=== PATIENT | female | born 1985 | race Caucasian/White ===

== ENCOUNTER 2018-02-05 07:53 | Emergency (ER) | payer MEDICAID ==
[~2018-02-05] VITALS: Ht 162.6 cm; Wt 55.0 kg
[2018-02-05] MEDS ORDERED: LORAZEPAM 1MG TABLET PO ONE (10:15)
[2018-02-05 10:19] VITALS: BP 140/85
== END 2018-02-05 10:47 | disposition home or self-care (01) ==
LOC: ER 07:53
DX: F41.9 Anxiety disorder, unspecified (principal); G40.909 Epilepsy, unspecified, not intractable, without status epilepticus; F12.90 Cannabis use, unspecified, uncomplicated
CPT/HCPCS: 99283; 99284

== ENCOUNTER 2018-05-20 16:59 | Emergency (ER) | payer MEDICAID ==
[~2018-05-20] VITALS: Ht 162.6 cm; Wt 60.0 kg
[2018-05-20] MEDS ORDERED: SODIUM CHLORIDE 0.9% 1,000 ML IV ONE (17:18)
[2018-05-20 17:52] LABS: BASOPHILS % 0.2 % (0.0-2.0); HEMATOCRIT. 39.6 % (36.0-48.0); HEMOGLOBIN. 13.2 g/dL (12.0-16.0); LYMPHOCYTES % 34.6 % (20.0-50.0); MEAN CORPUSCULAR HEMOGLOBIN 31.9 pg (28.0-32.0); MEAN CORPUSCULAR VOLUME 95.9 fL (81.0-99.0); MEAN PLATELET VOLUME 8.5 fl (7.4-10.4); MONOCYTES % 8.8 % (2.0-8.0); NEUTROPHILS % 55.4 % (40.0-76.0); PLATELET 166 x1000/uL (130-400); RED BLOOD CELL COUNT 4.13 mill/uL (4.2-5.4); RED CELL DISTRIBUTION WIDTH 14.2 % (11.6-14.6)
[2018-05-20 17:57] LABS: HCG SCREEN NEGATIVE
[2018-05-20 18:02] LABS: CHLORIDE 116 mEq/L (98-107)
[2018-05-20 18:09] LABS: CLARITY URINE TURBID (CLEAR); COLOR URINE YELLOW (YELLOW); KETONES URINE NEGATIVE (NEGATIVE); LEUKOCYTE ESTERASE URINE TRACE (NEGATIVE); NITRITE URINE NEGATIVE (NEGATIVE); OCCULT BLOOD URINE NEGATIVE (NEGATIVE); PROTEIN URINE NEGATIVE (NEGATIVE); SPECIFIC GRAVITY URINE 1.019 (1.005-1.030); UROBILINOGEN URINE 0.2 E.U./dL (0.2-1.0)
[2018-05-20 18:12] LABS: CARBAMAZEPINE < 0.5 ug/mL (4-12); ETHANOL BLOOD < 10 mg/dL; PHENOBARBITAL < 2.1 ug/mL (15.0-40.0); VALPROIC ACID < 3.0 ug/mL (50-100)
[2018-05-20 18:21] LABS: CANNABINOID URINE SCREEN NEGATIVE (NEGATIVE); METHADONE URINE SCREEN NEGATIVE (NEGATIVE); OPIATES URINE SCREEN NEGATIVE (NEGATIVE); PHENCYCLIDINE URINE SCREEN NEGATIVE (NEGATIVE)
[2018-05-20 18:22] LABS: *AMPHETAMINES SCREEN URINE NEGATIVE (NEGATIVE); *BARBITURATES SCREEN URINE NEGATIVE (NEGATIVE); *BENZODIAZEPINES SCREEN URINE NEGATIVE (NEGATIVE); *COCAINE SCREEN URINE NEGATIVE (NEGATIVE)
[2018-05-20] MEDS ORDERED: CARBAMAZEPINE 100MG TABLET CHEW PO ONE (19:15)
[2018-05-20 20:54] VITALS: BP 95/63
== END 2018-05-20 21:00 | disposition home or self-care (01) ==
LOC: ER 16:59
DX: E86.0 Dehydration (principal); R56.9 Unspecified convulsions; N39.0 Urinary tract infection, site not specified; F12.10 Cannabis abuse, uncomplicated
CPT/HCPCS: 36415; 70450; 80053; 80156; 80165; 80184; 80185; 80305; 81003; 81025; 84703; 85025; 96360; 96361; 99285; G0482; J7030

== ENCOUNTER 2018-07-22 19:24 | Emergency (ER) | payer MEDICAID ==
[~2018-07-22] VITALS: Ht 162.6 cm; Wt 68.1 kg
[2018-07-23] MEDS ORDERED: AZITHROMYCIN 500 MG TABLET PO ONE (01:00)
[2018-07-23] MEDS ORDERED: CEFTRIAXONE SODIUM 250 MG/VIAL IM ONE (01:00)
[2018-07-23 02:28] LABS: CLARITY URINE CLEAR (CLEAR); COLOR URINE YELLOW (YELLOW); KETONES URINE NEGATIVE (NEGATIVE); LEUKOCYTE ESTERASE URINE TRACE (NEGATIVE); NITRITE URINE POSITIVE (NEGATIVE); OCCULT BLOOD URINE NEGATIVE (NEGATIVE); PROTEIN URINE NEGATIVE (NEGATIVE); SPECIFIC GRAVITY URINE 1.018 (1.005-1.030); UROBILINOGEN URINE 0.2 E.U./dL (0.2-1.0)
[2018-07-23] MEDS ORDERED: CEPHALEXIN 250MG CAPSULE PO SCH (03:15)
[2018-07-23 05:52] VITALS: BP 119/55
[2018-07-27 04:13] LABS: CHLAMYDIA TRACHOMATIS NAA Negative (Negative); NEISSERIA GONORRHOEAE NAA Negative (Negative)
== END 2018-07-23 05:53 | disposition home or self-care (01) ==
LOC: ER 20:53
DX: G40.909 Epilepsy, unspecified, not intractable, without status epilepticus (principal); Z11.3 Encounter for screening for infections with a predominantly sexual mode of transmission; T76.21XA Adult sexual abuse, suspected, initial encounter; Z98.890 Other specified postprocedural states
CPT/HCPCS: 81003; 81025; 82962; 86703; 87491; 87591; 96372; 99283; J0696

== ENCOUNTER 2018-09-03 19:19 | Emergency (ER) | payer MEDICAID ==
[~2018-09-03] VITALS: Ht 167.6 cm; Wt 68.0 kg
[2018-09-03 19:23] VITALS: BP 130/84
== END 2018-09-03 23:00 | disposition left against medical advice (07) ==
LOC: ER 19:19
DX: Z53.21 Procedure and treatment not carried out due to patient leaving prior to being seen by health care provider (principal); F41.9 Anxiety disorder, unspecified; F32.9 Major depressive disorder, single episode, unspecified; Z98.890 Other specified postprocedural states

== ENCOUNTER 2019-01-15 22:22 | Emergency (ER) | payer MEDICAID ==
[~2019-01-15] VITALS: Ht 162.6 cm; Wt 57.0 kg
[2019-01-15 23:30] LABS: CLARITY URINE CLOUDY (CLEAR); COLOR URINE DARK YELLOW (YELLOW); KETONES URINE TRACE (NEGATIVE); LEUKOCYTE ESTERASE URINE 2+ (NEGATIVE); NITRITE URINE NEGATIVE (NEGATIVE); OCCULT BLOOD URINE NEGATIVE (NEGATIVE); PH URINE 5.5 (4.5-8.0); PROTEIN URINE NEGATIVE (NEGATIVE); SPECIFIC GRAVITY URINE 1.028 (1.005-1.030)
[2019-01-16] MEDS ORDERED: CEPHALEXIN 250MG CAPSULE PO ONE (01:45)
[2019-01-16 01:59] VITALS: BP 95/65
== END 2019-01-16 02:25 | disposition home or self-care (01) ==
LOC: ER 23:17
DX: N39.0 Urinary tract infection, site not specified (principal); R05 Cough
CPT/HCPCS: 71045; 81025; 99284

== ENCOUNTER 2019-02-12 12:34 | Emergency (ER) | payer MEDICAID ==
[~2019-02-12] VITALS: Ht 160 cm; Wt 60.0 kg
[2019-02-12] MEDS ORDERED: FLUT15.88 NS (12:53)
[2019-02-12] MEDS ORDERED: BIOT25008 PO (12:53)
[2019-02-12] MEDS ORDERED: OMEP20CA5 PO (12:53)
[2019-02-12] MEDS ORDERED: MONT10TA24 PO (12:53)
[2019-02-12] MEDS ORDERED: OXCA600T20 PO (12:53)
[2019-02-12] MEDS ORDERED: LUBI8CAP PO (12:53)
[2019-02-12] MEDS ORDERED: LEVO88TA7 PO (12:53)
[2019-02-12] MEDS ORDERED: DEXL60CA3 PO (12:53)
[2019-02-12] MEDS ORDERED: TOPI200T15 PO (12:53)
[2019-02-12] MEDS ORDERED: CLON2TAB21 PO (12:53)
[2019-02-12] MEDS ORDERED: DIATR MEGLU/DIATRIZOATE SOLN 30ML ONE (15:42)
[2019-02-12 16:36] LABS: BASOPHILS % 0.4 % (0.0-2.0); EOSINOPHILS % 1.9 % (0.0-5.0); HEMATOCRIT. 39.6 % (36.0-48.0); HEMOGLOBIN. 13.6 g/dL (12.0-16.0); LYMPHOCYTES % 41.8 % (20.0-50.0); MEAN CORPUSCULAR HEMOGLOBIN 33.4 pg (28.0-32.0); MEAN CORPUSCULAR VOLUME 97.5 fL (81.0-99.0); MEAN PLATELET VOLUME 8.4 fl (7.4-10.4); NEUTROPHILS % 46.9 % (40.0-76.0); PLATELET 161 x1000/uL (130-400); RED BLOOD CELL COUNT 4.06 mill/uL (4.2-5.4); RED CELL DISTRIBUTION WIDTH 12.8 % (11.6-14.6)
[2019-02-12 16:40] LABS: CHLORIDE 108 mEq/L (98-107)
[2019-02-12 16:41] LABS: INR 1.1; PROTHROMBIN TIME 11.6 sec (9.6-11.0)
[2019-02-12 16:51] LABS: B-HCG QUANTITATIVE < 1 mIU/mL (<3)
[2019-02-12 19:03] LABS: CLARITY URINE CLEAR (CLEAR); COLOR URINE DARK YELLOW (YELLOW); KETONES URINE 2+ (NEGATIVE); LEUKOCYTE ESTERASE URINE 2+ (NEGATIVE); NITRITE URINE NEGATIVE (NEGATIVE); OCCULT BLOOD URINE NEGATIVE (NEGATIVE); PH URINE 6.5 (4.5-8.0); PROTEIN URINE NEGATIVE (NEGATIVE); SPECIFIC GRAVITY URINE 1.021 (1.005-1.030)
[2019-02-12 19:15] LABS: *AMPHETAMINES SCREEN URINE NEGATIVE (NEGATIVE)
[2019-02-12 19:16] LABS: *BARBITURATES SCREEN URINE NEGATIVE (NEGATIVE); *COCAINE SCREEN URINE NEGATIVE (NEGATIVE); CANNABINOID URINE SCREEN NEGATIVE (NEGATIVE); METHADONE URINE SCREEN NEGATIVE (NEGATIVE); OPIATES URINE SCREEN NEGATIVE (NEGATIVE); PHENCYCLIDINE URINE SCREEN NEGATIVE (NEGATIVE)
[2019-02-12 19:18] LABS: *BENZODIAZEPINES SCREEN URINE PRESUMTIVE POSITIVE (NEGATIVE)
[2019-02-12] MEDS ORDERED: NITROFURANTOIN 100MG M/M CAPSULE PO ONE (20:00)
[2019-02-12 20:59] VITALS: BP 108/70
== END 2019-02-12 21:01 | disposition home or self-care (01) ==
LOC: ER 12:34
DX: N39.0 Urinary tract infection, site not specified (principal); E86.0 Dehydration; R30.0 Dysuria; D72.819 Decreased white blood cell count, unspecified; E87.8 Other disorders of electrolyte and fluid balance, not elsewhere classified; R00.1 Bradycardia, unspecified; N89.8 Other specified noninflammatory disorders of vagina; F41.9 Anxiety disorder, unspecified; G40.909 Epilepsy, unspecified, not intractable, without status epilepticus; N17.0 Acute kidney failure with tubular necrosis; E03.9 Hypothyroidism, unspecified; R82.71 Bacteriuria; R82.4 Acetonuria; F32.9 Major depressive disorder, single episode, unspecified; R78.89 Finding of other specified substances, not normally found in blood; K21.9 Gastro-esophageal reflux disease without esophagitis; I95.9 Hypotension, unspecified; D64.9 Anemia, unspecified; F12.10 Cannabis abuse, uncomplicated; F19.10 Other psychoactive substance abuse, uncomplicated; Z98.51 Tubal ligation status; Z98.890 Other specified postprocedural states; Z59.0 Homelessness; Z79.899 Other long term (current) drug therapy; Z88.8 Allergy status to other drugs, medicaments and biological substances; Z91.040 Latex allergy status
CPT/HCPCS: 36415; 74176; 80053; 80305; 81003; 81025; 83690; 83735; 84702; 85025; 85610; 87040; 87077; 87086; 87186; 93005; 99284; Q9963

== ENCOUNTER 2019-04-30 17:24 | Emergency (ER) | payer MEDICAID ==
[~2019-04-30] VITALS: Ht 162.6 cm; Wt 60.0 kg
[~2019-04-30 17:24] MED LIST: BIOT25008 PO; CLON2TAB21 PO; DEXL60CA3 PO; FLUT15.88 NS; LEVO88TA7 PO; LUBI8CAP PO; MONT10TA24 PO; OMEP20CA5 PO; OXCA600T20 PO; TOPI200T15 PO
[2019-04-30] MEDS ORDERED: SODIUM CHLORIDE 0.9% 1,000 ML IV ONE (20:11)
[2019-04-30] MEDS ORDERED: LEVETIRACETAM 1000MG/100ML 100 ML IV ONE (20:15)
[2019-04-30] MEDS ORDERED: CLONAZEPAM 1MG TABLET PO ONE (20:45)
[2019-04-30] MEDS ORDERED: OXYCODONE HCL/ACETAMINOPHEN 5/325MG TABLET PO ONE (20:45)
[2019-04-30 23:14] LABS: BASOPHILS % 0.2 % (0.0-2.0); EOSINOPHILS % 1.9 % (0.0-5.0); HEMATOCRIT. 35.4 % (36.0-48.0); HEMOGLOBIN. 12.1 g/dL (12.0-16.0); LYMPHOCYTES % 40.9 % (20.0-50.0); MEAN CORPUSCULAR HEMOGLOBIN 33.2 pg (28.0-32.0); MEAN CORPUSCULAR VOLUME 96.9 fL (81.0-99.0); MEAN PLATELET VOLUME 7.4 fl (7.4-10.4); MONOCYTES % 9.3 % (2.0-8.0); NEUTROPHILS % 47.7 % (40.0-76.0); PLATELET 143 x1000/uL (130-400); RED BLOOD CELL COUNT 3.66 mill/uL (4.2-5.4); RED CELL DISTRIBUTION WIDTH 12.7 % (11.6-14.6)
[2019-04-30 23:20] LABS: CHLORIDE 118 mEq/L (98-107)
[2019-04-30 23:21] LABS: CLARITY URINE CLEAR (CLEAR); COLOR URINE YELLOW (YELLOW); KETONES URINE NEGATIVE (NEGATIVE); LEUKOCYTE ESTERASE URINE NEGATIVE (NEGATIVE); NITRITE URINE NEGATIVE (NEGATIVE); OCCULT BLOOD URINE NEGATIVE (NEGATIVE); PROTEIN URINE NEGATIVE (NEGATIVE); SPECIFIC GRAVITY URINE 1.025 (1.005-1.030); UROBILINOGEN URINE 0.2 E.U./dL (0.2-1.0)
[2019-04-30 23:24] LABS: ETHANOL BLOOD < 10 mg/dL
[2019-04-30 23:37] LABS: *AMPHETAMINES SCREEN URINE NEGATIVE (NEGATIVE); *BARBITURATES SCREEN URINE NEGATIVE (NEGATIVE); *COCAINE SCREEN URINE NEGATIVE (NEGATIVE)
[2019-04-30 23:38] LABS: CANNABINOID URINE SCREEN NEGATIVE (NEGATIVE); METHADONE URINE SCREEN NEGATIVE (NEGATIVE); OPIATES URINE SCREEN NEGATIVE (NEGATIVE); PHENCYCLIDINE URINE SCREEN NEGATIVE (NEGATIVE)
[2019-04-30 23:44] LABS: *BENZODIAZEPINES SCREEN URINE PRESUMTIVE POSITIVE (NEGATIVE)
[2019-05-01 15:01] VITALS: BP 121/70
== END 2019-05-01 15:01 | disposition home or self-care (01) ==
LOC: ER 17:24
DX: G40.909 Epilepsy, unspecified, not intractable, without status epilepticus (principal); F12.10 Cannabis abuse, uncomplicated; F13.10 Sedative, hypnotic or anxiolytic abuse, uncomplicated; F41.9 Anxiety disorder, unspecified; K21.9 Gastro-esophageal reflux disease without esophagitis; I95.9 Hypotension, unspecified; E03.9 Hypothyroidism, unspecified; D64.9 Anemia, unspecified; F43.10 Post-traumatic stress disorder, unspecified; Z59.0 Homelessness; Z87.440 Personal history of urinary (tract) infections; Z87.09 Personal history of other diseases of the respiratory system; Z98.51 Tubal ligation status; Z79.899 Other long term (current) drug therapy
CPT/HCPCS: 36415; 80053; 80305; 80320; 81003; 81025; 82962; 85025; 96365; 99283; J1953; J7030; Z7610; G0480

== ENCOUNTER 2019-06-22 17:21 | Emergency (ER) | payer MEDICAID ==
[~2019-06-22] VITALS: Ht 167.6 cm; Wt 68.0 kg
[2019-06-22] MEDS ORDERED: LORAZEPAM 1MG TABLET PO ONE (18:45)
[2019-06-22 19:02] LABS: BASOPHILS % 0.1 % (0.0-2.0); HEMATOCRIT. 44.4 % (36.0-48.0); HEMOGLOBIN. 14.8 g/dL (12.0-16.0); LYMPHOCYTES % 35.5 % (20.0-50.0); MEAN CORPUSCULAR HEMOGLOBIN 31.8 pg (28.0-32.0); MEAN CORPUSCULAR VOLUME 95.7 fL (81.0-99.0); MEAN PLATELET VOLUME 7.7 fl (7.4-10.4); MONOCYTES % 4.5 % (2.0-8.0); NEUTROPHILS % 58.9 % (40.0-76.0); PLATELET 207 x1000/uL (130-400); RED BLOOD CELL COUNT 4.64 mill/uL (4.2-5.4); RED CELL DISTRIBUTION WIDTH 13.2 % (11.6-14.6)
[2019-06-22 19:09] LABS: CHLORIDE 113 mEq/L (98-107)
[2019-06-22 19:20] LABS: CARBAMAZEPINE < 0.5 ug/mL (4-12)
[2019-06-22 20:22] LABS: CLARITY URINE CLOUDY (CLEAR); COLOR URINE YELLOW (YELLOW); KETONES URINE NEGATIVE (NEGATIVE); LEUKOCYTE ESTERASE URINE NEGATIVE (NEGATIVE); NITRITE URINE NEGATIVE (NEGATIVE); OCCULT BLOOD URINE NEGATIVE (NEGATIVE); PH URINE 6.5 (4.5-8.0); PROTEIN URINE NEGATIVE (NEGATIVE); SPECIFIC GRAVITY URINE 1.023 (1.005-1.030); UROBILINOGEN URINE 0.2 E.U./dL (0.2-1.0)
[2019-06-22] MEDS ORDERED: CARBAMAZEPINE 200MG TABLET PO ONE (21:00)
[2019-06-22] MEDS ORDERED: ACETAMINOPHEN WITH CODEINE 300/30MG TABLET PO ONE (21:00)
[2019-06-22 21:42] VITALS: BP 102/70
== END 2019-06-22 21:45 | disposition home or self-care (01) ==
LOC: ER 17:21
DX: G40.909 Epilepsy, unspecified, not intractable, without status epilepticus (principal); F41.9 Anxiety disorder, unspecified; K21.9 Gastro-esophageal reflux disease without esophagitis; E03.9 Hypothyroidism, unspecified; Z98.51 Tubal ligation status; Z91.018 Allergy to other foods
CPT/HCPCS: 36415; 80156; 81003; 81025; 93005; 99284

== ENCOUNTER 2019-07-28 00:05 | Emergency (ER) | payer MEDICAID ==
[~2019-07-28] VITALS: Ht 162.6 cm; Wt 60.0 kg
[2019-07-28 02:31] LABS: CLARITY URINE TURBID (CLEAR); COLOR URINE YELLOW (YELLOW); KETONES URINE NEGATIVE (NEGATIVE); LEUKOCYTE ESTERASE URINE 1+ (NEGATIVE); NITRITE URINE NEGATIVE (NEGATIVE); OCCULT BLOOD URINE NEGATIVE (NEGATIVE); PROTEIN URINE NEGATIVE (NEGATIVE); SPECIFIC GRAVITY URINE 1.017 (1.005-1.030); UROBILINOGEN URINE 0.2 E.U./dL (0.2-1.0)
[2019-07-28] MEDS ORDERED: ACETAMINOPHEN 325MG TABLET PO ONE (03:45)
[2019-07-28 04:50] VITALS: BP 102/55
== END 2019-07-28 04:57 | disposition home or self-care (01) ==
LOC: ER 00:05
DX: N30.00 Acute cystitis without hematuria (principal); Z86.73 Personal history of transient ischemic attack (TIA), and cerebral infarction without residual deficits; F12.10 Cannabis abuse, uncomplicated; F13.10 Sedative, hypnotic or anxiolytic abuse, uncomplicated; K21.9 Gastro-esophageal reflux disease without esophagitis; Z98.890 Other specified postprocedural states; Z98.51 Tubal ligation status; Z79.899 Other long term (current) drug therapy
CPT/HCPCS: 76830; 76856; 81003; 81025; 99284

== ENCOUNTER 2019-08-08 10:07 | Inpatient (IN) | payer MEDICAID ==
[~2019-08-08] VITALS: Ht 162.6 cm; Wt 61.7 kg
[~2019-08-08 10:07] MED LIST changes: +FLUT15.844 NS; -FLUT15.88 NS; -MONT10TA24 PO; +MONT10TA26 PO; +OMEP20CA14 PO; -OMEP20CA5 PO
[2019-08-08] MEDS ORDERED: SODIUM CHLORIDE 0.9% 1,000 ML IV ONE ×2 (13:16→16:15)
[2019-08-08] MEDS ORDERED: MECLIZINE 25MG TABLET PO ONE (13:30)
[2019-08-08 13:52] LABS: CLARITY URINE CLOUDY (CLEAR); COLOR URINE YELLOW (YELLOW); KETONES URINE NEGATIVE (NEGATIVE); LEUKOCYTE ESTERASE URINE NEGATIVE (NEGATIVE); NITRITE URINE NEGATIVE (NEGATIVE); OCCULT BLOOD URINE NEGATIVE (NEGATIVE); PH URINE 8.5 (4.5-8.0); PROTEIN URINE NEGATIVE (NEGATIVE); SPECIFIC GRAVITY URINE 1.019 (1.005-1.030); UROBILINOGEN URINE 0.2 E.U./dL (0.2-1.0)
[2019-08-08 13:56] LABS: BASOPHILS % 0.3 % (0.0-2.0); EOSINOPHILS % 1.8 % (0.0-5.0); HEMATOCRIT. 38.4 % (36.0-48.0); HEMOGLOBIN. 13.1 g/dL (12.0-16.0); LYMPHOCYTES % 39.7 % (20.0-50.0); MEAN CORPUSCULAR HEMOGLOBIN 32.9 pg (28.0-32.0); MEAN CORPUSCULAR VOLUME 96.5 fL (81.0-99.0); MEAN PLATELET VOLUME 7.4 fl (7.4-10.4); MONOCYTES % 6.9 % (2.0-8.0); NEUTROPHILS % 51.3 % (40.0-76.0); PLATELET 168 x1000/uL (130-400); RED BLOOD CELL COUNT 3.98 mill/uL (4.2-5.4); RED CELL DISTRIBUTION WIDTH 13.2 % (11.6-14.6)
[2019-08-08 14:02] LABS: CHLORIDE 111 mEq/L (98-107)
[2019-08-08 14:06] LABS: ETHANOL BLOOD < 10 mg/dL
[2019-08-08 14:37] LABS: *COCAINE SCREEN URINE NEGATIVE (NEGATIVE); METHADONE URINE SCREEN NEGATIVE (NEGATIVE); OPIATES URINE SCREEN NEGATIVE (NEGATIVE)
[2019-08-08 14:38] LABS: *AMPHETAMINES SCREEN URINE NEGATIVE (NEGATIVE); *BARBITURATES SCREEN URINE NEGATIVE (NEGATIVE); *BENZODIAZEPINES SCREEN URINE NEGATIVE (NEGATIVE); CANNABINOID URINE SCREEN NEGATIVE (NEGATIVE); PHENCYCLIDINE URINE SCREEN NEGATIVE (NEGATIVE)
[2019-08-08 20:40] VITALS: BP 97/58
[2019-08-08] MEDS ORDERED: CLAR-44 PO (22:01)
[2019-08-08] MEDS ORDERED: AMOX-494 MT (22:01)
[2019-08-08] MEDS ORDERED: FAMO40TA7 PO (22:01)
[2019-08-08] MEDS ORDERED: FOLI400T4 PO (22:01)
[2019-08-08] MEDS ORDERED: OXCA600T20 MT (22:01)
[2019-08-08] MEDS ORDERED: OMEP40CA12 PO (22:01)
[2019-08-08] MEDS ORDERED: TOPI200T15 MT (22:01)
[2019-08-08] MEDS ORDERED: MULT-1146 MT (22:01)
[2019-08-08] MEDS ORDERED: FOLI0.4T2 MT (22:01)
[2019-08-08] MEDS ORDERED: MECLIZINE 25MG TABLET PO PRN (23:15)
[2019-08-09] VITALS: BP 97/56
[2019-08-09 04:00] VITALS: BP 89/51
[2019-08-09] MEDS: LEVOTHYROXINE SODIUM 88MCG TABLET PO SCH (06:02)
[2019-08-09] MEDS: CLONAZEPAM 1MG TABLET PO SCH ×2 (06:50→13:10)
[2019-08-09 07:05] LABS: BASOPHILS % 0.3 % (0.0-2.0); EOSINOPHILS % 1.5 % (0.0-5.0); HEMATOCRIT. 35.6 % (36.0-48.0); HEMOGLOBIN. 12.3 g/dL (12.0-16.0); LYMPHOCYTES % 38.2 % (20.0-50.0); MEAN CORPUSCULAR HEMOGLOBIN 33.2 pg (28.0-32.0); MONOCYTES % 7.3 % (2.0-8.0); NEUTROPHILS % 52.7 % (40.0-76.0); PLATELET 161 x1000/uL (130-400); RED BLOOD CELL COUNT 3.71 mill/uL (4.2-5.4); RED CELL DISTRIBUTION WIDTH 13.3 % (11.6-14.6)
[2019-08-09 08:00] VITALS: BP 93/52
[2019-08-09 08:28] LABS: CHLORIDE 119 mEq/L (98-107)
[2019-08-09] MEDS ORDERED: TOPIRAMATE 100MG TABLET PO SCH (09:00)
[2019-08-09] MEDS ORDERED: OXCARBAZEPINE 300MG TABLET PO SCH (09:00)
[2019-08-09] MEDS: ASPIRIN 325MG EC TABLET PO SCH (09:32)
[2019-08-09 12:00] VITALS: BP 91/55
[2019-08-09] MEDS: MIDODRINE HCL 5MG TABLET PO SCH ×2 (14:46→17:41)
[2019-08-09 16:00] VITALS: BP 114/57
[2019-08-09] MEDS ORDERED: MONTELUKAST SODIUM 10MG TABLET PO SCH (17:00)
[2019-08-09] MEDS: TOPIRAMATE 100MG TABLET PO SCH (17:40)
[2019-08-09] MEDS: OXCARBAZEPINE 300MG TABLET PO SCH (17:41)
[2019-08-09 20:00] VITALS: BP 115/55
[2019-08-09] MEDS ORDERED: FAMOTIDINE 20MG TABLET PO SCH (21:00)
[2019-08-10] VITALS: BP 84/48
[2019-08-10] MEDS: CLONAZEPAM 1MG TABLET PO SCH ×2 (00:06→06:19)
[2019-08-10 04:00] VITALS: BP 92/44
[2019-08-10] MEDS: OXCARBAZEPINE 300MG TABLET PO SCH (06:19)
[2019-08-10] MEDS: LEVOTHYROXINE SODIUM 88MCG TABLET PO SCH (06:19)
[2019-08-10] MEDS: TOPIRAMATE 100MG TABLET PO SCH (06:19)
[2019-08-10] MEDS: ASPIRIN 325MG EC TABLET PO SCH (09:00)
[2019-08-10] MEDS: MIDODRINE HCL 5MG TABLET PO SCH (09:00)
== END 2019-08-10 09:15 | disposition left against medical advice (07) | DRG 48 ==
LOC: ER 10:07 → EDBEDREQ 18:18 → ENRESERV 19:47 → 5WST 20:24
PROVIDERS: ADMIT Internal Medicine; ATTEND Internal Medicine
DX: G90.8 Other disorders of autonomic nervous system (principal); G40.209 Localization-related (focal) (partial) symptomatic epilepsy and epileptic syndromes with complex partial seizures, not intractable, without status epilepticus; F43.10 Post-traumatic stress disorder, unspecified; K21.9 Gastro-esophageal reflux disease without esophagitis; K58.9 Irritable bowel syndrome, unspecified; E03.9 Hypothyroidism, unspecified; F32.9 Major depressive disorder, single episode, unspecified; F41.9 Anxiety disorder, unspecified; Z53.29 Procedure and treatment not carried out because of patient's decision for other reasons; Z91.018 Allergy to other foods; Z91.040 Latex allergy status; Z98.891 History of uterine scar from previous surgery; Z88.8 Allergy status to other drugs, medicaments and biological substances; Z79.899 Other long term (current) drug therapy; Z81.8 Family history of other mental and behavioral disorders; Z91.410 Personal history of adult physical and sexual abuse; Z56.0 Unemployment, unspecified; Z80.0 Family history of malignant neoplasm of digestive organs
CPT/HCPCS: 36415; 71045; 80048; 80053; 80305; 80307; 80320; 80329; 81003; 82140; 84484; 85025; 93005; 96360; 99285; J7030; J8597; G0480

== ENCOUNTER 2019-08-12 01:58 | Emergency (ER) | payer MEDICAID ==
[~2019-08-12] VITALS: Ht 162.6 cm; Wt 60.0 kg
[~2019-08-12 01:58] MED LIST changes: +AMOX-494 MT; +CLAR500T PO; -DEXL60CA3 PO; +FAMO40TA7 PO; +FOLI0.4T2 MT; -LUBI8CAP PO; +MONT10TA24 PO; -MONT10TA26 PO; +MULT-1146 MT; +OMEP40CA12 PO
[2019-08-12] MEDS ORDERED: HYDROCODONE/ACETAMINOPHEN 5/325MG TABLET PO ONE (02:45)
[2019-08-12 11:31] VITALS: BP 102/53
== END 2019-08-12 12:03 | disposition home or self-care (01) ==
LOC: ER 02:42
DX: R51 Headache (principal); K21.9 Gastro-esophageal reflux disease without esophagitis; D64.9 Anemia, unspecified; R56.9 Unspecified convulsions; E03.9 Hypothyroidism, unspecified; F43.10 Post-traumatic stress disorder, unspecified; Z91.018 Allergy to other foods; Z91.040 Latex allergy status; Z91.048 Other nonmedicinal substance allergy status
CPT/HCPCS: 99283

== ENCOUNTER 2019-08-25 11:17 | Emergency (ER) | payer MEDICAID ==
[~2019-08-25] VITALS: Ht 162.6 cm; Wt 61.0 kg
[2019-08-25] MEDS ORDERED: LORAZEPAM 1MG TABLET PO ONE (15:30)
[2019-08-25 16:45] VITALS: BP 118/80
== END 2019-08-25 17:03 | disposition home or self-care (01) ==
LOC: ER 11:17
DX: F41.9 Anxiety disorder, unspecified (principal); R56.9 Unspecified convulsions; D64.9 Anemia, unspecified; K21.9 Gastro-esophageal reflux disease without esophagitis; Z98.890 Other specified postprocedural states; F12.10 Cannabis abuse, uncomplicated; E03.9 Hypothyroidism, unspecified; Z79.899 Other long term (current) drug therapy; Z91.040 Latex allergy status
CPT/HCPCS: 81025; 99283

== ENCOUNTER 2019-08-25 18:23 | Emergency (ER) | payer MEDICAID ==
[2019-08-25] MEDS ORDERED: SODIUM CHLORIDE 0.9% 1,000 ML IV ONE (22:32)
[2019-08-25] MEDS ORDERED: LORAZEPAM 2MG/ML CPJ IV ONE (22:45)
[2019-08-25 23:02] LABS: BASOPHILS % 0.1 % (0.0-2.0); EOSINOPHILS % 0.8 % (0.0-5.0); HEMATOCRIT. 38.6 % (36.0-48.0); LYMPHOCYTES % 34.8 % (20.0-50.0); MEAN CORPUSCULAR HEMOGLOBIN 32.4 pg (28.0-32.0); MEAN PLATELET VOLUME 7.6 fl (7.4-10.4); MONOCYTES % 8.3 % (2.0-8.0); PLATELET 205 x1000/uL (130-400); RED BLOOD CELL COUNT 4.03 mill/uL (4.2-5.4); RED CELL DISTRIBUTION WIDTH 13.2 % (11.6-14.6)
[2019-08-25 23:06] LABS: CHLORIDE 113 mEq/L (98-107)
[2019-08-25 23:10] LABS: ETHANOL BLOOD < 10 mg/dL
[2019-08-25 23:18] LABS: HCG SCREEN NEGATIVE
[2019-08-25 23:19] LABS: PHENOBARBITAL < 2.1 ug/mL (15.0-40.0)
[2019-08-25 23:20] LABS: CARBAMAZEPINE < 0.5 ug/mL (4-12); VALPROIC ACID < 3.0 ug/mL (50-100)
[2019-08-26 00:53] LABS: CLARITY URINE CLEAR (CLEAR); COLOR URINE YELLOW (YELLOW); KETONES URINE NEGATIVE (NEGATIVE); LEUKOCYTE ESTERASE URINE NEGATIVE (NEGATIVE); NITRITE URINE NEGATIVE (NEGATIVE); OCCULT BLOOD URINE NEGATIVE (NEGATIVE); PH URINE 6.5 (4.5-8.0); PROTEIN URINE NEGATIVE (NEGATIVE); SPECIFIC GRAVITY URINE 1.025 (1.005-1.030); UROBILINOGEN URINE 0.2 E.U./dL (0.2-1.0)
[2019-08-26 01:08] LABS: *AMPHETAMINES SCREEN URINE NEGATIVE (NEGATIVE); *BARBITURATES SCREEN URINE NEGATIVE (NEGATIVE); *BENZODIAZEPINES SCREEN URINE NEGATIVE (NEGATIVE); *COCAINE SCREEN URINE NEGATIVE (NEGATIVE); METHADONE URINE SCREEN NEGATIVE (NEGATIVE); OPIATES URINE SCREEN NEGATIVE (NEGATIVE)
[2019-08-26 01:09] LABS: CANNABINOID URINE SCREEN NEGATIVE (NEGATIVE); PHENCYCLIDINE URINE SCREEN NEGATIVE (NEGATIVE)
[2019-08-26] MEDS ORDERED: CARBAMAZEPINE 100MG TABLET CHEW PO ONE (01:30)
[2019-08-26 02:00] VITALS: BP 93/43
== END 2019-08-26 03:58 | disposition home or self-care (01) ==
LOC: ER 18:23
DX: G40.909 Epilepsy, unspecified, not intractable, without status epilepticus (principal); E86.0 Dehydration; K21.9 Gastro-esophageal reflux disease without esophagitis; E03.9 Hypothyroidism, unspecified; D64.9 Anemia, unspecified; Z91.018 Allergy to other foods; Z91.040 Latex allergy status; Z91.048 Other nonmedicinal substance allergy status
CPT/HCPCS: 36415; 70450; 80053; 80156; 80165; 80184; 80185; 80305; 80320; 81003; 82962; 83690; 84443; 84703; 85025; 93005; 96361; 96374; 99284; J2060; J7030; Z7610; G0480

== ENCOUNTER 2019-09-19 02:02 | Emergency (ER) | payer MEDICAID ==
[~2019-09-19] VITALS: Ht 162.6 cm; Wt 58.0 kg
[~2019-09-19 02:02] MED LIST changes: +CLAR-44 PO; -CLAR500T PO; -MONT10TA24 PO; +MONT10TA26 PO
[2019-09-19] MEDS ORDERED: KETOROLAC 30MG/ML VIAL IV STA (04:22)
[2019-09-19] MEDS ORDERED: SODIUM CHLORIDE 0.9% 1,000 ML IV ONE (04:22)
[2019-09-19] MEDS ORDERED: ONDANSETRON HCL 4MG/2ML INJ IV STA (04:22)
[2019-09-19] MEDS ORDERED: FAMOTIDINE 20MG/2ML VIAL IV ONE (04:30)
[2019-09-19 05:12] LABS: BASOPHILS % 0.1 % (0.0-2.0); CLARITY URINE CLEAR (CLEAR); COLOR URINE YELLOW (YELLOW); EOSINOPHILS % 2.2 % (0.0-5.0); HEMATOCRIT. 39.4 % (36.0-48.0); HEMOGLOBIN. 13.5 g/dL (12.0-16.0); KETONES URINE NEGATIVE (NEGATIVE); LEUKOCYTE ESTERASE URINE 2+ (NEGATIVE); LYMPHOCYTES % 37.9 % (20.0-50.0); MEAN CORPUSCULAR HEMOGLOBIN 33.3 pg (28.0-32.0); MEAN CORPUSCULAR VOLUME 96.8 fL (81.0-99.0); MEAN PLATELET VOLUME 7.8 fl (7.4-10.4); MONOCYTES % 8.9 % (2.0-8.0); NEUTROPHILS % 50.9 % (40.0-76.0); NITRITE URINE NEGATIVE (NEGATIVE); OCCULT BLOOD URINE NEGATIVE (NEGATIVE); PH URINE 7.5 (4.5-8.0); PLATELET 147 x1000/uL (130-400); PROTEIN URINE NEGATIVE (NEGATIVE); RED BLOOD CELL COUNT 4.07 mill/uL (4.2-5.4); RED CELL DISTRIBUTION WIDTH 13.2 % (11.6-14.6); SPECIFIC GRAVITY URINE 1.018 (1.005-1.030); UROBILINOGEN URINE 0.2 E.U./dL (0.2-1.0)
[2019-09-19 05:17] LABS: CHLORIDE 110 mEq/L (98-107)
[2019-09-19] MEDS ORDERED: ACETAMINOPHEN 325MG TABLET PO ONE (06:00)
[2019-09-19 06:06] VITALS: BP 95/68
== END 2019-09-19 06:15 | disposition home or self-care (01) ==
LOC: ER 02:02
DX: R10.13 Epigastric pain (principal); R11.2 Nausea with vomiting, unspecified; N39.0 Urinary tract infection, site not specified; D64.9 Anemia, unspecified; K21.9 Gastro-esophageal reflux disease without esophagitis; Z98.890 Other specified postprocedural states; Z79.899 Other long term (current) drug therapy; Z91.018 Allergy to other foods
CPT/HCPCS: 36415; 80053; 81003; 81025; 83690; 85025; 87077; 87086; 87186; 96361; 96374; 96375; 99284; J1885; J2405; J3490; J7030

== ENCOUNTER 2019-10-15 08:32 | Emergency (ER) | payer MEDICAID ==
[~2019-10-15] VITALS: Ht 160 cm; Wt 58.0 kg
[2019-10-15] MEDS ORDERED: SODIUM CHLORIDE 0.9% 1,000 ML IV ONE (09:38)
[2019-10-15] MEDS ORDERED: ONDANSETRON HCL 4MG/2ML INJ IV STA (09:38)
[2019-10-15] MEDS ORDERED: MORPHINE SULFATE 4 MG/ML CPJ (NOT FOR IM USE) IV STA (09:38)
[2019-10-15 10:11] LABS: BASOPHILS % 0.2 % (0.0-2.0); EOSINOPHILS % 0.7 % (0.0-5.0); HEMATOCRIT. 42.8 % (36.0-48.0); HEMOGLOBIN. 14.7 g/dL (12.0-16.0); LYMPHOCYTES % 27.1 % (20.0-50.0); MEAN CORPUSCULAR HEMOGLOBIN 33.2 pg (28.0-32.0); MEAN CORPUSCULAR VOLUME 96.9 fL (81.0-99.0); MEAN PLATELET VOLUME 8.2 fl (7.4-10.4); MONOCYTES % 6.4 % (2.0-8.0); NEUTROPHILS % 65.6 % (40.0-76.0); PLATELET 184 x1000/uL (130-400); RED BLOOD CELL COUNT 4.42 mill/uL (4.2-5.4)
[2019-10-15 10:13] LABS: CLARITY URINE CLOUDY (CLEAR); COLOR URINE DARK YELLOW (YELLOW); KETONES URINE NEGATIVE (NEGATIVE); LEUKOCYTE ESTERASE URINE 3+ (NEGATIVE); NITRITE URINE NEGATIVE (NEGATIVE); OCCULT BLOOD URINE NEGATIVE (NEGATIVE); PH URINE 5.5 (4.5-8.0); PROTEIN URINE NEGATIVE (NEGATIVE); SPECIFIC GRAVITY URINE 1.022 (1.005-1.030); UROBILINOGEN URINE 0.2 E.U./dL (0.2-1.0)
[2019-10-15 10:19] LABS: CHLORIDE 108 mEq/L (98-107)
[2019-10-15] MEDS ORDERED: CEFTRIAXONE 1 G PREMIX 50 ML IV ONE (11:00)
[2019-10-15 11:45] VITALS: BP 104/66
== END 2019-10-15 12:11 | disposition home or self-care (01) ==
LOC: ER 08:32
DX: N12 Tubulo-interstitial nephritis, not specified as acute or chronic (principal); M54.5 Low back pain; D64.9 Anemia, unspecified; K21.9 Gastro-esophageal reflux disease without esophagitis; Z98.890 Other specified postprocedural states; Z98.51 Tubal ligation status; Z79.899 Other long term (current) drug therapy; Z91.040 Latex allergy status; Z91.018 Allergy to other foods; Z88.8 Allergy status to other drugs, medicaments and biological substances
CPT/HCPCS: 36415; 80053; 81003; 81025; 83690; 85025; 87077; 87086; 87186; 96365; 96375; 99284; J0696; J2270; J2405; J7030

== ENCOUNTER 2019-11-01 20:32 | Emergency (ER) | payer MEDICAID ==
[~2019-11-01] VITALS: Ht 162.6 cm; Wt 59.0 kg
[2019-11-01] MEDS ORDERED: ONDANSETRON HCL 4MG/2ML INJ IV STA (21:41)
[2019-11-01] MEDS ORDERED: MORPHINE SULFATE 4 MG/ML CPJ (NOT FOR IM USE) IV STA (21:41)
[2019-11-01] MEDS ORDERED: SODIUM CHLORIDE 0.9% 1,000 ML IV ONE (21:41)
[2019-11-01] MEDS ORDERED: VISCOUS LIDOCAINE 2% 15 ML UDC PO ONE (21:45)
[2019-11-01] MEDS ORDERED: FAMOTIDINE 20MG/2ML VIAL IV ONE (21:45)
[2019-11-01] MEDS ORDERED: MAGNESIUM/ALUMINUM HYDROXIDE/SIMETHICONE 30ML UDC PO ONE (21:45)
[2019-11-01 22:26] LABS: BASOPHILS % 0.3 % (0.0-2.0); EOSINOPHILS % 1.3 % (0.0-5.0); HEMATOCRIT. 42.4 % (36.0-48.0); HEMOGLOBIN. 14.5 g/dL (12.0-16.0); LYMPHOCYTES % 36.5 % (20.0-50.0); MEAN CORPUSCULAR VOLUME 96.4 fL (81.0-99.0); MEAN PLATELET VOLUME 7.8 fl (7.4-10.4); MONOCYTES % 7.4 % (2.0-8.0); NEUTROPHILS % 54.5 % (40.0-76.0); PLATELET 187 x1000/uL (130-400); RED CELL DISTRIBUTION WIDTH 12.9 % (11.6-14.6)
[2019-11-01 22:34] LABS: CHLORIDE 112 mEq/L (98-107)
[2019-11-01 22:38] LABS: ETHANOL BLOOD < 10 mg/dL; HCG SCREEN NEGATIVE
[2019-11-01 23:57] VITALS: BP 120/72
== END 2019-11-01 23:59 | disposition home or self-care (01) ==
LOC: ER 20:32
DX: K29.70 Gastritis, unspecified, without bleeding (principal); K80.80 Other cholelithiasis without obstruction; K21.9 Gastro-esophageal reflux disease without esophagitis; J45.909 Unspecified asthma, uncomplicated; K58.9 Irritable bowel syndrome, unspecified; E03.9 Hypothyroidism, unspecified; G40.909 Epilepsy, unspecified, not intractable, without status epilepticus; Z98.51 Tubal ligation status; Z91.040 Latex allergy status; Z91.018 Allergy to other foods
CPT/HCPCS: 36415; 71045; 76705; 80053; 80320; 83690; 84484; 84703; 85025; 96361; 96374; 96375; 99285; J2270; J3490; J7030; G0480

== ENCOUNTER 2019-11-22 07:07 | Emergency (ER) | payer MEDICAID ==
[~2019-11-22] VITALS: Ht 162.6 cm; Wt 62.0 kg
[2019-11-22 07:50] VITALS: BP 104/62
== END 2019-11-22 08:02 | disposition home or self-care (01) ==
LOC: ER 07:07
DX: J11.1 Influenza due to unidentified influenza virus with other respiratory manifestations (principal); Z03.818 Encounter for observation for suspected exposure to other biological agents ruled out; G40.909 Epilepsy, unspecified, not intractable, without status epilepticus; E03.9 Hypothyroidism, unspecified; Z98.890 Other specified postprocedural states; Z98.51 Tubal ligation status; Z91.040 Latex allergy status; Z91.018 Allergy to other foods; Z91.048 Other nonmedicinal substance allergy status
CPT/HCPCS: 99283

== ENCOUNTER 2019-12-06 00:02 | Emergency (ER) | payer MEDICAID ==
[~2019-12-06] VITALS: Ht 162.6 cm; Wt 61.0 kg
[2019-12-06] MEDS ORDERED: TRAMADOL 50MG TABLET PO NR (02:15)
[2019-12-06 02:34] VITALS: BP 104/67
== END 2019-12-06 02:58 | disposition home or self-care (01) ==
LOC: ER 00:02
DX: M54.2 Cervicalgia (principal); K21.9 Gastro-esophageal reflux disease without esophagitis; G40.909 Epilepsy, unspecified, not intractable, without status epilepticus; K58.9 Irritable bowel syndrome, unspecified; E03.9 Hypothyroidism, unspecified; F32.9 Major depressive disorder, single episode, unspecified; Z98.51 Tubal ligation status; F43.10 Post-traumatic stress disorder, unspecified; Z91.018 Allergy to other foods; Z91.040 Latex allergy status
CPT/HCPCS: 99283

== ENCOUNTER 2020-01-12 20:51 | Emergency (ER) | payer MEDICAID ==
[~2020-01-12] VITALS: Ht 167.6 cm; Wt 57.0 kg
[2020-01-12 23:56] VITALS: BP 107/62
== END 2020-01-12 23:58 | disposition home or self-care (01) ==
LOC: ER 20:51
DX: R56.9 Unspecified convulsions (principal); G89.29 Other chronic pain; M54.9 Dorsalgia, unspecified; K21.9 Gastro-esophageal reflux disease without esophagitis; I95.9 Hypotension, unspecified; Z91.018 Allergy to other foods; Z91.040 Latex allergy status; Z79.899 Other long term (current) drug therapy; Z98.890 Other specified postprocedural states
CPT/HCPCS: 81025; 82962; 99283

== ENCOUNTER 2020-01-28 21:52 | Emergency (ER) | payer MEDICAID ==
[~2020-01-28] VITALS: Ht 162.6 cm; Wt 60.0 kg
[2020-01-28 22:46] VITALS: BP 117/67
== END 2020-01-29 04:30 | disposition home or self-care (01) ==
LOC: ER 21:52
DX: R42 Dizziness and giddiness (principal); K21.9 Gastro-esophageal reflux disease without esophagitis; E03.9 Hypothyroidism, unspecified; K58.9 Irritable bowel syndrome, unspecified; F43.10 Post-traumatic stress disorder, unspecified; Z98.890 Other specified postprocedural states; Z88.8 Allergy status to other drugs, medicaments and biological substances; Z91.018 Allergy to other foods; Z91.040 Latex allergy status; Z87.81 Personal history of (healed) traumatic fracture; W19.XXXA Unspecified fall, initial encounter; Y93.89 Activity, other specified; Y92.89 Other specified places as the place of occurrence of the external cause
CPT/HCPCS: 81025; 93005; 99284

== ENCOUNTER 2020-03-15 18:53 | Emergency (ER) | payer MEDICAID ==
[~2020-03-15] VITALS: Ht 165.1 cm; Wt 63.0 kg
[2020-03-15 20:36] LABS: BASOPHILS % 0.2 % (0.0-2.0); EOSINOPHILS % 1.2 % (0.0-5.0); HEMATOCRIT. 39.9 % (36.0-48.0); HEMOGLOBIN. 13.7 g/dL (12.0-16.0); LYMPHOCYTES % 21.7 % (20.0-50.0); MEAN CORPUSCULAR HEMOGLOBIN 33.4 pg (28.0-32.0); MEAN PLATELET VOLUME 7.4 fl (7.4-10.4); MONOCYTES % 9.9 % (2.0-8.0); PLATELET 155 x1000/uL (130-400); RED BLOOD CELL COUNT 4.12 mill/uL (4.2-5.4); RED CELL DISTRIBUTION WIDTH 12.5 % (11.6-14.6)
[2020-03-15 20:43] LABS: CLARITY URINE CLEAR (CLEAR); COLOR URINE YELLOW (YELLOW); KETONES URINE NEGATIVE (NEGATIVE); LEUKOCYTE ESTERASE URINE NEGATIVE (NEGATIVE); NITRITE URINE NEGATIVE (NEGATIVE); OCCULT BLOOD URINE NEGATIVE (NEGATIVE); PROTEIN URINE NEGATIVE (NEGATIVE); SPECIFIC GRAVITY URINE 1.015 (1.005-1.030); UROBILINOGEN URINE 0.2 E.U./dL (0.2-1.0)
[2020-03-15 20:45] LABS: CHLORIDE 106 mEq/L (98-107)
[2020-03-15 22:00] VITALS: BP 108/68
== END 2020-03-15 22:04 | disposition home or self-care (01) ==
LOC: ER 18:53
DX: G40.909 Epilepsy, unspecified, not intractable, without status epilepticus (principal); G89.29 Other chronic pain; M54.9 Dorsalgia, unspecified; I10 Essential (primary) hypertension; K21.9 Gastro-esophageal reflux disease without esophagitis; Z91.018 Allergy to other foods; Z91.048 Other nonmedicinal substance allergy status; Z91.040 Latex allergy status; Z79.899 Other long term (current) drug therapy; Z98.890 Other specified postprocedural states
CPT/HCPCS: 36415; 80048; 81003; 81025; 82962; 85025; 99283

== ENCOUNTER 2020-05-04 12:53 | Emergency (ER) | payer MEDICAID ==
[~2020-05-04] VITALS: Ht 162.6 cm; Wt 73.0 kg
[2020-05-04 15:24] LABS: CHLORIDE 112 mEq/L (98-107)
[2020-05-04 15:27] LABS: CLARITY URINE CLEAR (CLEAR); COLOR URINE YELLOW (YELLOW); KETONES URINE NEGATIVE (NEGATIVE); LEUKOCYTE ESTERASE URINE NEGATIVE (NEGATIVE); NITRITE URINE NEGATIVE (NEGATIVE); OCCULT BLOOD URINE NEGATIVE (NEGATIVE); PH URINE 7.5 (4.5-8.0); PROTEIN URINE NEGATIVE (NEGATIVE); SPECIFIC GRAVITY URINE 1.013 (1.005-1.030); UROBILINOGEN URINE 0.2 E.U./dL (0.2-1.0)
[2020-05-04 15:35] LABS: BASOPHILS % 0.2 % (0.0-2.0); EOSINOPHILS % 1.4 % (0.0-5.0); HEMATOCRIT. 36.4 % (36.0-48.0); HEMOGLOBIN. 12.4 g/dL (12.0-16.0); LYMPHOCYTES % 29.4 % (20.0-50.0); MEAN CORPUSCULAR HEMOGLOBIN 32.9 pg (28.0-32.0); MEAN CORPUSCULAR VOLUME 96.8 fL (81.0-99.0); MEAN PLATELET VOLUME 7.7 fl (7.4-10.4); MONOCYTES % 6.8 % (2.0-8.0); NEUTROPHILS % 62.2 % (40.0-76.0); PLATELET 135 x1000/uL (130-400); RED BLOOD CELL COUNT 3.76 mill/uL (4.2-5.4); RED CELL DISTRIBUTION WIDTH 12.5 % (11.6-14.6)
[2020-05-04 15:53] LABS: PHOSPHORUS 3.3 mg/dL (2.5-4.9)
[2020-05-04 16:53] VITALS: BP 109/65
== END 2020-05-04 16:50 | disposition home or self-care (01) ==
LOC: ER 12:53
DX: G40.919 Epilepsy, unspecified, intractable, without status epilepticus (principal); I95.9 Hypotension, unspecified; K21.9 Gastro-esophageal reflux disease without esophagitis; Z91.018 Allergy to other foods; Z91.048 Other nonmedicinal substance allergy status; Z91.040 Latex allergy status; Z79.899 Other long term (current) drug therapy; Z98.890 Other specified postprocedural states
CPT/HCPCS: 36415; 80053; 81003; 81025; 83735; 84100; 85025; 93005; 99285

== ENCOUNTER 2020-09-18 21:09 | Emergency (ER) | payer MEDICAID ==
[~2020-09-18] VITALS: Ht 162.6 cm; Wt 61.2 kg
[~2020-09-18 21:09] MED LIST changes: -FOLI0.4T2 MT; +FOLI0.4T6 MT; -MONT10TA26 PO; +MONT10TA32 PO
[2020-09-18 21:36] VITALS: BP 107/71
[2020-09-18] MEDS ORDERED: KETOROLAC 30MG/ML VIAL IM ONE (22:45)
[2020-09-19] MEDS ORDERED: ACETAMINOPHEN WITH CODEINE 300/30MG TABLET PO ONE (00:30)
[2020-09-19] MEDS ORDERED: ACET-2708 MT (01:01)
[2020-09-20] MEDS ORDERED: T3 PO (11:25)
[2020-10-03] MEDS ORDERED: CLON2TAB21 MT (14:47)
== END 2020-09-19 01:21 | disposition home or self-care (01) ==
LOC: ER 21:09
DX: M54.5 Low back pain (principal); E03.9 Hypothyroidism, unspecified; R56.9 Unspecified convulsions; F32.9 Major depressive disorder, single episode, unspecified; K21.9 Gastro-esophageal reflux disease without esophagitis; Z98.890 Other specified postprocedural states
CPT/HCPCS: 96372; 99283; J1885

== ENCOUNTER 2020-09-20 08:28 | Emergency (ER) | payer MEDICAID ==
[~2020-09-20] VITALS: Ht 165.1 cm; Wt 54.0 kg
[~2020-09-20 08:28] MED LIST changes: +ACET-2708 MT
[2020-09-20] MEDS ORDERED: BACITRACIN ZINC OINT UDPKT TOP NR (09:00)
[2020-09-20] MEDS ORDERED: FLUORESCEIN SODIUM 1MG/STRIP RIGHTEYE NR (09:00)
[2020-09-20] MEDS ORDERED: BALANCED SALT IRRIG SOLN 15ML IR NR (09:00)
[2020-09-20] MEDS ORDERED: TETRACAINE 0.5% OPHTH DROPS 4ML RIGHTEYE NR (09:00)
[2020-09-20] MEDS ORDERED: LIDOCAINE HCL/PF 1% 10 MG/ML 5ML VIAL IJ NR (09:00)
[2020-09-20] MEDS ORDERED: HYDROCODONE/ACETAMINOPHEN 5/325MG TABLET PO STA (09:54)
[2020-09-20 10:00] VITALS: BP 112/82
[2020-09-20] MEDS ORDERED: T3 PO (11:25)
[2020-10-03] MEDS ORDERED: CLON2TAB21 MT (14:47)
== END 2020-09-20 11:44 | disposition home or self-care (01) ==
LOC: ER 08:35
DX: S01.111A Laceration without foreign body of right eyelid and periocular area, initial encounter (principal); Z91.018 Allergy to other foods; Z91.048 Other nonmedicinal substance allergy status; Z91.040 Latex allergy status; Z79.899 Other long term (current) drug therapy; Z98.890 Other specified postprocedural states; Y04.0XXA Assault by unarmed brawl or fight, initial encounter; Y93.89 Activity, other specified; Y92.89 Other specified places as the place of occurrence of the external cause; Y99.8 Other external cause status
CPT/HCPCS: 12014; 70450; 70486; 81025; 99285; J3490; Z7610

== ENCOUNTER 2020-09-27 08:45 | Emergency (ER) | payer MEDICAID ==
[~2020-09-27] VITALS: Ht 162.6 cm; Wt 60.0 kg
[~2020-09-27 08:45] MED LIST changes: +T3 PO
[2020-09-27] MEDS ORDERED: POLY15DR31 RIGHTEYE (09:22)
[2020-09-27] MEDS ORDERED: NEOM28.37 TP (09:22)
[2020-09-27 09:28] VITALS: BP 121/74
[2020-10-03] MEDS ORDERED: CLON2TAB21 MT (14:47)
== END 2020-09-27 10:02 | disposition home or self-care (01) ==
LOC: ER 08:45
DX: S01.81XD Laceration without foreign body of other part of head, subsequent encounter (principal); H11.31 Conjunctival hemorrhage, right eye; Z48.02 Encounter for removal of sutures; Z91.018 Allergy to other foods; Z88.8 Allergy status to other drugs, medicaments and biological substances; Z91.040 Latex allergy status; Z88.9 Allergy status to unspecified drugs, medicaments and biological substances; Z79.899 Other long term (current) drug therapy; Z98.890 Other specified postprocedural states; Z86.59 Personal history of other mental and behavioral disorders; X58.XXXD Exposure to other specified factors, subsequent encounter
CPT/HCPCS: 99281; Z7610

== ENCOUNTER 2020-09-30 18:58 | Emergency (ER) | payer MEDICAID ==
[~2020-09-30] VITALS: Ht 162.6 cm; Wt 55.0 kg
[~2020-09-30 18:58] MED LIST changes: +NEOM28.37 TP; +POLY15DR31 RIGHTEYE
[2020-09-30] MEDS ORDERED: SODIUM CHLORIDE 0.9% 1,000 ML IV ONE (21:30)
[2020-09-30] MEDS ORDERED: KETOROLAC 30MG/ML VIAL IV ONE (21:30)
[2020-09-30 21:38] LABS: CLARITY URINE CLEAR (CLEAR); COLOR URINE YELLOW (YELLOW); KETONES URINE NEGATIVE (NEGATIVE); LEUKOCYTE ESTERASE URINE NEGATIVE (NEGATIVE); NITRITE URINE NEGATIVE (NEGATIVE); OCCULT BLOOD URINE NEGATIVE (NEGATIVE); PH URINE 7.5 (4.5-8.0); PROTEIN URINE NEGATIVE (NEGATIVE); SPECIFIC GRAVITY URINE 1.011 (1.005-1.030); UROBILINOGEN URINE 0.2 E.U./dL (0.2-1.0)
[2020-09-30 22:06] LABS: BASOPHILS % 0.2 % (0.0-2.0); EOSINOPHILS % 1.1 % (0.0-5.0); HEMATOCRIT. 38.1 % (36.0-48.0); HEMOGLOBIN. 13.2 g/dL (12.0-16.0); LYMPHOCYTES % 36.2 % (20.0-50.0); MEAN CORPUSCULAR HEMOGLOBIN 33.5 pg (28.0-32.0); MEAN CORPUSCULAR VOLUME 96.6 fL (81.0-99.0); MEAN PLATELET VOLUME 8.1 fl (7.4-10.4); MONOCYTES % 7.6 % (2.0-8.0); NEUTROPHILS % 54.9 % (40.0-76.0); PLATELET 179 x1000/uL (130-400); RED BLOOD CELL COUNT 3.95 mill/uL (4.2-5.4); RED CELL DISTRIBUTION WIDTH 13.3 % (11.6-14.6)
[2020-09-30 22:13] LABS: CHLORIDE 109 mEq/L (98-107)
[2020-09-30 22:16] LABS: INR 1.2; PROTHROMBIN TIME 12.6 sec (9.6-11.0)
[2020-09-30 22:19] LABS: HCG SCREEN NEGATIVE
[2020-10-01 00:55] VITALS: BP 95/54
[2020-10-01] MEDS ORDERED: PIPERACILLIN/TAZOBACTAM 3.375GM/50ML PREMIX IV SCH (02:00)
[2020-10-01] MEDS ORDERED: SODIUM CHLORIDE 0.9% 1,000 ML IV ONE (02:00)
[2020-10-03] MEDS ORDERED: CLON2TAB21 MT (14:47)
== END 2020-10-01 02:50 | disposition left against medical advice (07) ==
LOC: ER 18:58 → CANBEDREQ 10-01 02:23 → ER 10-01 02:50
DX: K81.0 Acute cholecystitis (principal); E03.9 Hypothyroidism, unspecified; D64.9 Anemia, unspecified; I95.9 Hypotension, unspecified; G40.909 Epilepsy, unspecified, not intractable, without status epilepticus; K21.9 Gastro-esophageal reflux disease without esophagitis; F43.10 Post-traumatic stress disorder, unspecified; E16.2 Hypoglycemia, unspecified; Z98.890 Other specified postprocedural states; Z79.899 Other long term (current) drug therapy; Z91.018 Allergy to other foods; Z91.040 Latex allergy status; Z91.048 Other nonmedicinal substance allergy status; Z88.8 Allergy status to other drugs, medicaments and biological substances
CPT/HCPCS: 36415; 71101; 74176; 76705; 80053; 81003; 81025; 82962; 83690; 84703; 85025; 85610; 93005; 96361; 96374; 96375; 99285; J1885; J2543; J7030

== ENCOUNTER 2020-10-02 10:52 | Emergency (ER) | payer MEDICAID ==
[~2020-10-02] VITALS: Ht 160 cm; Wt 68.0 kg
[2020-10-02 11:58] VITALS: BP 115/69
[2020-10-03] MEDS ORDERED: CLON2TAB21 MT (14:47)
== END 2020-10-02 12:00 | disposition home or self-care (01) ==
LOC: ER 10:52
DX: S00.211A Abrasion of right eyelid and periocular area, initial encounter (principal); G40.909 Epilepsy, unspecified, not intractable, without status epilepticus; E03.9 Hypothyroidism, unspecified; K58.9 Irritable bowel syndrome, unspecified; Z87.828 Personal history of other (healed) physical injury and trauma; Z98.890 Other specified postprocedural states; Z91.09 Other allergy status, other than to drugs and biological substances; Z91.018 Allergy to other foods; Z91.040 Latex allergy status; X58.XXXA Exposure to other specified factors, initial encounter; Y93.89 Activity, other specified; Y92.098 Other place in other non-institutional residence as the place of occurrence of the external cause
CPT/HCPCS: 99281

== ENCOUNTER 2020-10-25 00:10 | Emergency (ER) | payer OTHER ==
[~2020-10-25] VITALS: Ht 162.6 cm; Wt 60.0 kg
[~2020-10-25 00:10] MED LIST changes: -AMOX-494 MT; -CLAR-44 PO; +CLON2TAB21 MT; -OMEP40CA12 PO; -T3 PO
[2020-10-25] MEDS ORDERED: ONDANSETRON HCL 4MG/2ML INJ IV STA (01:30)
[2020-10-25] MEDS ORDERED: KETOROLAC 15MG/ML VIAL IV ONE (01:30)
[2020-10-25] MEDS ORDERED: MORPHINE SULFATE 4 MG/ML CPJ (NOT FOR IM USE) IV STA (01:30)
[2020-10-25 01:56] LABS: BASOPHILS % 0.4 % (0.0-2.0); EOSINOPHILS % 0.1 % (0.0-5.0); HEMOGLOBIN. 12.1 g/dL (12.0-16.0); LYMPHOCYTES % 11.2 % (20.0-50.0); MEAN CORPUSCULAR HEMOGLOBIN 33.5 pg (28.0-32.0); MEAN CORPUSCULAR VOLUME 96.7 fL (81.0-99.0); MEAN PLATELET VOLUME 7.8 fl (7.4-10.4); NEUTROPHILS % 82.3 % (40.0-76.0); PLATELET 136 x1000/uL (130-400); RED BLOOD CELL COUNT 3.62 mill/uL (4.2-5.4); RED CELL DISTRIBUTION WIDTH 13.4 % (11.6-14.6)
[2020-10-25 02:01] LABS: CHLORIDE 108 mEq/L (98-107)
[2020-10-25 04:06] VITALS: BP 100/45
[2020-10-25] MEDS ORDERED: OXYC-662 MT (04:07)
[2020-10-25] MEDS ORDERED: IBUP-2029 MT (04:07)
[2020-10-25] MEDS ORDERED: ONDA4TAB11 PO (04:07)
[2020-10-25] MEDS ORDERED: NALO4SPR BOTHNSTRLS (04:08)
== END 2020-10-25 05:30 | disposition home or self-care (01) ==
LOC: ER 00:10
DX: G89.18 Other acute postprocedural pain (principal); R10.11 Right upper quadrant pain; J45.909 Unspecified asthma, uncomplicated; K21.9 Gastro-esophageal reflux disease without esophagitis; I95.9 Hypotension, unspecified; Z91.018 Allergy to other foods; Z88.8 Allergy status to other drugs, medicaments and biological substances; Z91.040 Latex allergy status; Z91.048 Other nonmedicinal substance allergy status; Z79.899 Other long term (current) drug therapy; Z98.51 Tubal ligation status; Z90.49 Acquired absence of other specified parts of digestive tract; Z86.39 Personal history of other endocrine, nutritional and metabolic disease
CPT/HCPCS: 36415; 80053; 85025; 96374; 96375; 99284; J1885; J2270; J2405; Z7610

== ENCOUNTER 2020-10-27 01:09 | Inpatient (IN) | payer OTHER ==
[~2020-10-27] VITALS: Ht 162.6 cm; Wt 59.9 kg
[~2020-10-27 01:09] MED LIST changes: +IBUP-2029 MT; +NALO4SPR BOTHNSTRLS; +ONDA4TAB11 PO; +OXYC-662 MT
[2020-10-27] MEDS ORDERED: ONDANSETRON HCL 4MG/2ML INJ IV STA (03:25)
[2020-10-27] MEDS ORDERED: MORPHINE SULFATE 4 MG/ML CPJ (NOT FOR IM USE) IV STA ×2 (03:25→05:38)
[2020-10-27] MEDS ORDERED: SODIUM CHLORIDE 0.9% 1,000 ML IV ONE (03:30)
[2020-10-27 03:56] LABS: BASOPHILS % 0.2 % (0.0-2.0); EOSINOPHILS % 4.2 % (0.0-5.0); HEMATOCRIT. 40.1 % (36.0-48.0); HEMOGLOBIN. 13.6 g/dL (12.0-16.0); LYMPHOCYTES % 27.1 % (20.0-50.0); MEAN CORPUSCULAR HEMOGLOBIN 33.1 pg (28.0-32.0); MEAN CORPUSCULAR VOLUME 97.5 fL (81.0-99.0); MEAN PLATELET VOLUME 8.4 fl (7.4-10.4); MONOCYTES % 10.4 % (2.0-8.0); NEUTROPHILS % 58.1 % (40.0-76.0); PLATELET 146 x1000/uL (130-400); RED BLOOD CELL COUNT 4.12 mill/uL (4.2-5.4); RED CELL DISTRIBUTION WIDTH 12.9 % (11.6-14.6)
[2020-10-27 03:57] LABS: CHLORIDE 108 mEq/L (98-107)
[2020-10-27 04:02] LABS: HCG SCREEN NEGATIVE
[2020-10-27] MEDS ORDERED: IOHEXOL-300 100 ML BOTTLE ONE (05:07)
[2020-10-27 07:43] LABS: CLARITY URINE CLEAR (CLEAR); COLOR URINE DARK YELLOW (YELLOW); KETONES URINE NEGATIVE (NEGATIVE); LEUKOCYTE ESTERASE URINE NEGATIVE (NEGATIVE); NITRITE URINE NEGATIVE (NEGATIVE); OCCULT BLOOD URINE NEGATIVE (NEGATIVE); PH URINE 6.5 (4.5-8.0); PROTEIN URINE NEGATIVE (NEGATIVE); SPECIFIC GRAVITY URINE 1.037 (1.005-1.030)
[2020-10-27 08:37] VITALS: BP 100/64
[2020-10-27] MEDS ORDERED: MORPHINE SULFATE 2 MG/ML CPJ (NOT FOR IM USE) IV NR (08:45)
[2020-10-27] MEDS ORDERED: ONDANSETRON HCL 4MG/2ML INJ IV PRN (08:45)
[2020-10-27 10:10] VITALS: BP 100/64
[2020-10-27] MEDS ORDERED: FOLI-43 PO (10:33)
[2020-10-27] MEDS ORDERED: CHOL200026 (10:33)
[2020-10-27] MEDS ORDERED: CHOL2400 MC (10:33)
[2020-10-27] MEDS ORDERED: TOPI200T15 PO (10:33)
[2020-10-27] MEDS ORDERED: BENJ IM (10:33)
[2020-10-27] MEDS ORDERED: BIOT25008 PO (10:33)
[2020-10-27] MEDS ORDERED: CETI10CA2 PO (10:33)
[2020-10-27 12:00] VITALS: BP 104/66
[2020-10-27] MEDS: HYDROCODONE/ACETAMINOPHEN 10/325MG TABLET PO PRN ×3 (12:58→21:10)
[2020-10-27] MEDS ORDERED: DICYCLOMINE HCL 10MG/ML 2ML AMP IM SCH (13:00)
[2020-10-27] MEDS ORDERED: DICYCLOMINE HCL 10MG CAPSULE PO PRN (13:15)
[2020-10-27] MEDS: LEVOTHYROXINE SODIUM 88MCG TABLET PO SCH (14:05)
[2020-10-27] MEDS: CLONAZEPAM 1MG TABLET PO SCH ×2 (14:05→17:05)
[2020-10-27 16:00] VITALS: BP 102/64
[2020-10-27] MEDS ORDERED: MEDICATION NOT ON FORMULARY EA (Topiramate 1 TAB) PO SCH (17:00)
[2020-10-27] MEDS: MONTELUKAST SODIUM 10MG TABLET PO SCH (17:05)
[2020-10-27 20:00] VITALS: BP 105/54
[2020-10-27] MEDS: OXCARBAZEPINE 300MG TABLET PO SCH (20:14)
[2020-10-27] MEDS: FAMOTIDINE 20MG TABLET PO SCH (20:14)
[2020-10-27] MEDS: TOPIRAMATE 100MG TABLET PO SCH (20:15)
[2020-10-27] MEDS ORDERED: TOPIRAMATE 100MG TABLET PO SCH (21:00)
[2020-10-28] VITALS: BP 101/65
[2020-10-28 00:09] LABS: *AMPHETAMINES SCREEN URINE NEGATIVE (NEGATIVE); *BARBITURATES SCREEN URINE NEGATIVE (NEGATIVE); *COCAINE SCREEN URINE NEGATIVE (NEGATIVE)
[2020-10-28 00:10] LABS: CANNABINOID URINE SCREEN NEGATIVE (NEGATIVE); METHADONE URINE SCREEN NEGATIVE (NEGATIVE); PHENCYCLIDINE URINE SCREEN NEGATIVE (NEGATIVE)
[2020-10-28 00:25] LABS: *BENZODIAZEPINES SCREEN URINE PRESUMTIVE POSITIVE (NEGATIVE); OPIATES URINE SCREEN PRESUMTIVE POSITIVE (NEGATIVE)
[2020-10-28] MEDS: HYDROCODONE/ACETAMINOPHEN 10/325MG TABLET PO PRN ×4 (03:38→22:47)
[2020-10-28 04:00] VITALS: BP 99/56
[2020-10-28 08:00] VITALS: BP 104/63
[2020-10-28] MEDS: MULTIVITAMINS,THER W-MINERALS TABLET PO SCH (09:16)
[2020-10-28] MEDS: TOPIRAMATE 100MG TABLET PO SCH ×2 (09:16→21:42)
[2020-10-28] MEDS: CLONAZEPAM 1MG TABLET PO SCH ×3 (09:16→17:11)
[2020-10-28] MEDS: LEVOTHYROXINE SODIUM 88MCG TABLET PO SCH (09:17)
[2020-10-28] MEDS: OXCARBAZEPINE 300MG TABLET PO SCH ×2 (09:17→21:42)
[2020-10-28] MEDS: FOLIC ACID 1MG TABLET PO SCH (09:17)
[2020-10-28] MEDS ORDERED: LACTULOSE 20G/30ML UDC PO SCH (11:00)
[2020-10-28] MEDS: DOCUSATE SODIUM SUGAR FREE 100MG/10ML UDC PO SCH (11:12)
[2020-10-28 12:00] VITALS: BP 89/59
[2020-10-28 16:00] VITALS: BP 102/60
[2020-10-28] MEDS: MONTELUKAST SODIUM 10MG TABLET PO SCH (17:11)
[2020-10-28 20:00] VITALS: BP 99/61
[2020-10-28] MEDS: FAMOTIDINE 20MG TABLET PO SCH (21:41)
[2020-10-29] VITALS: BP 96/62
[2020-10-29 04:00] VITALS: BP 93/60
[2020-10-29] MEDS: HYDROCODONE/ACETAMINOPHEN 10/325MG TABLET PO PRN ×2 (05:01→23:27)
[2020-10-29 06:04] LABS: BASOPHILS % 0.3 % (0.0-2.0); HEMATOCRIT. 36.1 % (36.0-48.0); HEMOGLOBIN. 12.4 g/dL (12.0-16.0); LYMPHOCYTES % 30.6 % (20.0-50.0); MEAN CORPUSCULAR VOLUME 96.2 fL (81.0-99.0); MEAN PLATELET VOLUME 8.2 fl (7.4-10.4); MONOCYTES % 9.3 % (2.0-8.0); NEUTROPHILS % 53.8 % (40.0-76.0); PLATELET 161 x1000/uL (130-400); RED BLOOD CELL COUNT 3.75 mill/uL (4.2-5.4); RED CELL DISTRIBUTION WIDTH 12.6 % (11.6-14.6)
[2020-10-29 06:20] LABS: CHLORIDE 110 mEq/L (98-107)
[2020-10-29] MEDS: LEVOTHYROXINE SODIUM 88MCG TABLET PO SCH (07:44)
[2020-10-29 07:59] VITALS: BP 91/51
[2020-10-29] MEDS: DOCUSATE SODIUM SUGAR FREE 100MG/10ML UDC PO SCH (10:08)
[2020-10-29] MEDS: FOLIC ACID 1MG TABLET PO SCH (10:08)
[2020-10-29] MEDS: TOPIRAMATE 100MG TABLET PO SCH ×2 (10:09→21:56)
[2020-10-29] MEDS: CLONAZEPAM 1MG TABLET PO SCH ×3 (10:09→18:22)
[2020-10-29] MEDS: OXCARBAZEPINE 300MG TABLET PO SCH ×2 (10:09→21:57)
[2020-10-29] MEDS: MULTIVITAMINS,THER W-MINERALS TABLET PO SCH (10:09)
[2020-10-29 12:00] VITALS: BP 93/56
[2020-10-29 16:00] VITALS: BP 97/59
[2020-10-29] MEDS: MONTELUKAST SODIUM 10MG TABLET PO SCH (18:22)
[2020-10-29] MEDS ORDERED: BISACODYL 10MG SUPP PR NR (19:30)
[2020-10-29 20:00] VITALS: BP 96/54
[2020-10-29] MEDS: FAMOTIDINE 20MG TABLET PO SCH (21:56)
[2020-10-29] MEDS: LIDOCAINE 5% PATCH TOP SCH (22:01)
[2020-10-30 04:00] VITALS: BP 90/60
[2020-10-30 07:32] LABS: BASOPHILS % 0.3 % (0.0-2.0); EOSINOPHILS % 5.7 % (0.0-5.0); HEMATOCRIT. 39.2 % (36.0-48.0); HEMOGLOBIN. 13.4 g/dL (12.0-16.0); LYMPHOCYTES % 23.8 % (20.0-50.0); MEAN CORPUSCULAR HEMOGLOBIN 33.3 pg (28.0-32.0); MEAN CORPUSCULAR VOLUME 97.1 fL (81.0-99.0); MEAN PLATELET VOLUME 8.3 fl (7.4-10.4); NEUTROPHILS % 61.2 % (40.0-76.0); PLATELET 188 x1000/uL (130-400); RED BLOOD CELL COUNT 4.04 mill/uL (4.2-5.4); RED CELL DISTRIBUTION WIDTH 12.7 % (11.6-14.6)
[2020-10-30 08:00] VITALS: BP 100/64
[2020-10-30 08:02] LABS: CHLORIDE 115 mEq/L (98-107)
[2020-10-30] MEDS: DOCUSATE SODIUM SUGAR FREE 100MG/10ML UDC PO SCH (09:14)
[2020-10-30] MEDS: OXCARBAZEPINE 300MG TABLET PO SCH (09:15)
[2020-10-30] MEDS: FOLIC ACID 1MG TABLET PO SCH (09:15)
[2020-10-30] MEDS: CLONAZEPAM 1MG TABLET PO SCH ×2 (09:15→12:30)
[2020-10-30] MEDS: LEVOTHYROXINE SODIUM 88MCG TABLET PO SCH (09:16)
[2020-10-30] MEDS: MULTIVITAMINS,THER W-MINERALS TABLET PO SCH (09:16)
[2020-10-30] MEDS: LIDOCAINE 5% PATCH TOP SCH (09:23)
[2020-10-30] MEDS ORDERED: OMEP20CA14 PO (11:29)
[2020-10-30] MEDS ORDERED: BIOT25008 PO (11:29)
[2020-10-30] MEDS ORDERED: LEVO88TA7 PO (11:29)
[2020-10-30] MEDS ORDERED: MONT10TA32 PO (11:29)
[2020-10-30] MEDS ORDERED: OXCA600T20 PO (11:29)
[2020-10-30] MEDS ORDERED: FAMO40TA7 PO (11:29)
[2020-10-30] MEDS ORDERED: FLUT15.844 NS (11:29)
[2020-10-30] MEDS ORDERED: CLON2TAB21 PO (11:29)
[2020-10-30] MEDS ORDERED: TOP100 PO (11:29)
[2020-10-30] MEDS ORDERED: MULT-1146 MT (11:29)
[2020-10-30] MEDS ORDERED: FOLI-43 PO (11:29)
[2020-10-30 12:00] VITALS: BP 106/67
[2020-10-30] MEDS: TOPIRAMATE 100MG TABLET PO SCH (12:25)
== END 2020-10-30 14:20 | disposition home or self-care (01) | DRG 861 ==
LOC: ER 01:09 → 6EST 05:37 → ENRESERV 07:23
PROVIDERS: ADMIT Internal Medicine; ATTEND Internal Medicine
DX: G89.18 Other acute postprocedural pain (principal); E87.8 Other disorders of electrolyte and fluid balance, not elsewhere classified; R10.9 Unspecified abdominal pain; K58.9 Irritable bowel syndrome, unspecified; F17.200 Nicotine dependence, unspecified, uncomplicated; F43.10 Post-traumatic stress disorder, unspecified; G40.909 Epilepsy, unspecified, not intractable, without status epilepticus; E03.9 Hypothyroidism, unspecified; R74.01 Elevation of levels of liver transaminase levels; F32.9 Major depressive disorder, single episode, unspecified; K21.9 Gastro-esophageal reflux disease without esophagitis; Z91.040 Latex allergy status; Z91.09 Other allergy status, other than to drugs and biological substances; Z76.5 Malingerer [conscious simulation]; Z90.49 Acquired absence of other specified parts of digestive tract; Z88.8 Allergy status to other drugs, medicaments and biological substances; Z79.899 Other long term (current) drug therapy; Z20.822 Contact with and (suspected) exposure to COVID-19
CPT/HCPCS: 36415; 71045; 74177; 80048; 80053; 80076; 80305; 81003; 83605; 84703; 85025; 87426; 93005; 99285; J2270; J2405; J7030; Q9967

== ENCOUNTER 2020-11-01 13:22 | Emergency (ER) | payer OTHER ==
[~2020-11-01] VITALS: Ht 162.6 cm; Wt 58.0 kg
[~2020-11-01 13:22] MED LIST changes: +BENJ IM; +CETI10CA2 PO; +CHOL200026; +CHOL2400 MC; -CLON2TAB21 MT; -CLON2TAB21 PO; +FOLI-43 PO; +TOP100 PO
[2020-11-01 13:38] VITALS: BP 113/76
[2020-11-01] MEDS ORDERED: HYDROCODONE/ACETAMINOPHEN 5/325MG TABLET PO ONE (16:15)
== END 2020-11-01 18:26 | disposition home or self-care (01) ==
LOC: ER 13:22
DX: Z91.018 Allergy to other foods (principal); Z88.8 Allergy status to other drugs, medicaments and biological substances; Z91.040 Latex allergy status; Z91.048 Other nonmedicinal substance allergy status; Z79.899 Other long term (current) drug therapy; Z98.890 Other specified postprocedural states; Z86.59 Personal history of other mental and behavioral disorders; Z90.49 Acquired absence of other specified parts of digestive tract
CPT/HCPCS: 99283; Z7610

== ENCOUNTER 2020-11-06 14:45 | Emergency (ER) | payer OTHER ==
[~2020-11-06] VITALS: Ht 162.6 cm; Wt 59.0 kg
[2020-11-06 17:48] LABS: BASOPHILS % 0.3 % (0.0-2.0); EOSINOPHILS % 4.4 % (0.0-5.0); HEMATOCRIT. 34.1 % (36.0-48.0); HEMOGLOBIN. 12.2 g/dL (12.0-16.0); LYMPHOCYTES % 38.9 % (20.0-50.0); MEAN CORPUSCULAR HEMOGLOBIN 34.5 pg (28.0-32.0); MEAN CORPUSCULAR VOLUME 96.6 fL (81.0-99.0); MEAN PLATELET VOLUME 7.9 fl (7.4-10.4); MONOCYTES % 7.1 % (2.0-8.0); NEUTROPHILS % 49.3 % (40.0-76.0); PLATELET 259 x1000/uL (130-400); RED BLOOD CELL COUNT 3.53 mill/uL (4.2-5.4); RED CELL DISTRIBUTION WIDTH 12.3 % (11.6-14.6)
[2020-11-06 17:55] LABS: CHLORIDE 105 mEq/L (98-107)
[2020-11-06 17:59] LABS: HCG SCREEN NEGATIVE; INR 1.1; PROTHROMBIN TIME 11.5 sec (9.6-11.0)
[2020-11-06 19:17] VITALS: BP 101/55
== END 2020-11-06 19:17 | disposition home or self-care (01) ==
LOC: ER 14:45
DX: M54.9 Dorsalgia, unspecified (principal); G89.29 Other chronic pain; K21.9 Gastro-esophageal reflux disease without esophagitis; E03.9 Hypothyroidism, unspecified; R56.9 Unspecified convulsions; D64.9 Anemia, unspecified; Z90.49 Acquired absence of other specified parts of digestive tract; Z91.018 Allergy to other foods; Z91.040 Latex allergy status; Z91.048 Other nonmedicinal substance allergy status
CPT/HCPCS: 36415; 74176; 80053; 81025; 84703; 85025; 99284

== ENCOUNTER 2021-01-06 10:07 | Emergency (ER) | payer MEDICAID, OTHER ==
[~2021-01-06] VITALS: Ht 162.6 cm; Wt 56.0 kg
[2021-01-06 10:12] VITALS: BP 123/66
== END 2021-01-06 10:44 | disposition home or self-care (01) ==
LOC: ER 10:18
DX: Z04.89 Encounter for examination and observation for other specified reasons (principal); K21.9 Gastro-esophageal reflux disease without esophagitis; G40.909 Epilepsy, unspecified, not intractable, without status epilepticus; E03.9 Hypothyroidism, unspecified; Z90.49 Acquired absence of other specified parts of digestive tract; Z98.890 Other specified postprocedural states; Z91.018 Allergy to other foods; Z91.09 Other allergy status, other than to drugs and biological substances; Z91.040 Latex allergy status
CPT/HCPCS: 99281

== ENCOUNTER 2021-01-22 17:18 | Emergency (ER) | payer MEDICAID, OTHER ==
[~2021-01-22] VITALS: Ht 160 cm; Wt 60.0 kg
[2021-01-22] MEDS ORDERED: FLUCONAZOLE 100MG TABLET PO ONE (18:30)
[2021-01-22] MEDS ORDERED: FLUC150T5 MT (18:46)
[2021-01-22 18:53] VITALS: BP 111/68
== END 2021-01-22 18:54 | disposition home or self-care (01) ==
LOC: ER 17:18
DX: B37.3 Candidiasis of vulva and vagina (principal); D64.9 Anemia, unspecified; K21.9 Gastro-esophageal reflux disease without esophagitis; E03.9 Hypothyroidism, unspecified; R56.9 Unspecified convulsions; Z91.040 Latex allergy status; Z90.49 Acquired absence of other specified parts of digestive tract; Z91.018 Allergy to other foods; Z91.048 Other nonmedicinal substance allergy status
CPT/HCPCS: 81025; 99283

== ENCOUNTER 2021-02-20 21:37 | Emergency (ER) | payer MEDICAID ==
[~2021-02-20] VITALS: Ht 162.6 cm; Wt 62.0 kg
[~2021-02-20 21:37] MED LIST changes: +CLON2TAB MT; +DICY10CA88 MT; +DOXY150T9 MT; +FLUC150T5 MT
[2021-02-20 22:23] VITALS: BP 106/57
== END 2021-02-21 02:22 | disposition left against medical advice (07) ==
LOC: ER 21:37
DX: Z53.21 Procedure and treatment not carried out due to patient leaving prior to being seen by health care provider (principal)

== ENCOUNTER 2021-02-22 11:08 | Inpatient (IN) | payer MEDICAID ==
[~2021-02-22] VITALS: Ht 162.6 cm; Wt 57.2 kg
[2021-02-22] MEDS ORDERED: ONDANSETRON HCL 4MG/2ML INJ IV STA (11:47)
[2021-02-22] MEDS ORDERED: SODIUM CHLORIDE 0.9% 1,000 ML IV ONE (12:00)
[2021-02-22] MEDS ORDERED: FAMOTIDINE 20MG/2ML VIAL IV ONE (12:00)
[2021-02-22 12:21] LABS: BASOPHILS % 0.3 % (0.0-2.0); EOSINOPHILS % 0.8 % (0.0-5.0); HEMATOCRIT. 40.2 % (36.0-48.0); HEMOGLOBIN. 13.7 g/dL (12.0-16.0); LYMPHOCYTES % 28.7 % (20.0-50.0); MEAN CORPUSCULAR HEMOGLOBIN 32.4 pg (28.0-32.0); MEAN CORPUSCULAR VOLUME 95.3 fL (81.0-99.0); MONOCYTES % 10.1 % (2.0-8.0); NEUTROPHILS % 60.1 % (40.0-76.0); PLATELET 161 x1000/uL (130-400); RED BLOOD CELL COUNT 4.22 mill/uL (4.2-5.4); RED CELL DISTRIBUTION WIDTH 13.2 % (11.6-14.6)
[2021-02-22 12:28] LABS: CHLORIDE 105 mEq/L (98-107)
[2021-02-22 12:31] LABS: HCG SCREEN NEGATIVE
[2021-02-22 12:32] LABS: ETHANOL BLOOD < 10 mg/dL
[2021-02-22 12:32] LABS: CLARITY URINE TURBID (CLEAR); COLOR URINE YELLOW (YELLOW); KETONES URINE NEGATIVE (NEGATIVE); LEUKOCYTE ESTERASE URINE NEGATIVE (NEGATIVE); NITRITE URINE NEGATIVE (NEGATIVE); OCCULT BLOOD URINE NEGATIVE (NEGATIVE); PH URINE 8.5 (4.5-8.0); PROTEIN URINE NEGATIVE (NEGATIVE)
[2021-02-22 12:53] LABS: *AMPHETAMINES SCREEN URINE NEGATIVE (NEGATIVE); *BARBITURATES SCREEN URINE NEGATIVE (NEGATIVE); *BENZODIAZEPINES SCREEN URINE NEGATIVE (NEGATIVE)
[2021-02-22 12:54] LABS: *COCAINE SCREEN URINE NEGATIVE (NEGATIVE); CANNABINOID URINE SCREEN NEGATIVE (NEGATIVE); METHADONE URINE SCREEN NEGATIVE (NEGATIVE); OPIATES URINE SCREEN NEGATIVE (NEGATIVE); PHENCYCLIDINE URINE SCREEN NEGATIVE (NEGATIVE)
[2021-02-22] MEDS ORDERED: ACETAMINOPHEN 325MG TABLET PO PRN (15:30)
[2021-02-22] MEDS: ONDANSETRON HCL 4MG/2ML INJ IV PRN ×2 (17:22→21:42)
[2021-02-22] MEDS: DOCUSATE SODIUM 100MG CAPSULE PO SCH (17:36)
[2021-02-23] MEDS ORDERED: LEVETIRACETAM 500MG PREMIX 100 ML IV SCH (06:00)
[2021-02-23] MEDS: DOCUSATE SODIUM 100MG CAPSULE PO SCH ×2 (09:45→18:32)
[2021-02-23 16:00] VITALS: BP 104/66
[2021-02-23] MEDS ORDERED: *PATIENT'S OWN MEDICATION STORAGE XX SCH (16:15)
[2021-02-23 16:30] VITALS: BP 104/66
[2021-02-23 20:00] VITALS: BP 98/64
[2021-02-23] MEDS ORDERED: CLONAZEPAM PO PRN (21:45)
[2021-02-23] MEDS: TOPIRAMATE 100MG TABLET PO SCH (22:20)
[2021-02-23] MEDS: LEVOTHYROXINE SODIUM 88MCG TABLET PO SCH (22:20)
[2021-02-23] MEDS: CLONAZEPAM 1MG TABLET PO PRN (22:21)
[2021-02-23] MEDS: OXCARBAZEPINE 300MG TABLET PO SCH (22:21)
[2021-02-23] MEDS: LEVETIRACETAM 500MG PREMIX 100 ML IV SCH (23:00)
[2021-02-24] VITALS: BP 90/48
[2021-02-24 04:00] VITALS: BP 91/54
[2021-02-24] MEDS ORDERED: MEDICATION NOT ON FORMULARY EA (Oxcarbazepine 600 MG) PO SCH (06:00)
[2021-02-24] MEDS ORDERED: OXCARBAZEPINE 1200 MG PO SCH (06:00)
[2021-02-24] MEDS ORDERED: DOXYCYCLINE HYCLATE MT SCH (06:00)
[2021-02-24] MEDS ORDERED: MEDICATION NOT ON FORMULARY EA (Folic Acid 1 TAB) PO SCH (06:00)
[2021-02-24] MEDS: MULTIVITAMINS,THER W-MINERALS TABLET PO SCH ×2 (06:38→09:02)
[2021-02-24] MEDS: LEVOTHYROXINE SODIUM 88MCG TABLET PO SCH (06:38)
[2021-02-24] MEDS: CHOLECALCIFEROL (D3) 1000 UNIT TABLET PO SCH (06:38)
[2021-02-24 08:00] VITALS: BP 92/51
[2021-02-24] MEDS: DICYCLOMINE HCL 10MG CAPSULE PO SCH ×3 (09:02→18:44)
[2021-02-24] MEDS: DOCUSATE SODIUM 100MG CAPSULE PO SCH ×2 (09:03→17:38)
[2021-02-24] MEDS: TOPIRAMATE 100MG TABLET PO SCH ×2 (09:03→21:55)
[2021-02-24] MEDS: OXCARBAZEPINE 300MG TABLET PO SCH ×2 (09:03→17:39)
[2021-02-24] MEDS: FOLIC ACID 1MG TABLET PO SCH (09:03)
[2021-02-24] MEDS: LEVETIRACETAM 500MG PREMIX 100 ML IV SCH (09:08)
[2021-02-24 12:00] VITALS: BP 92/49
[2021-02-24] MEDS: CETIRIZINE 10MG TABLET PO SCH (13:34)
[2021-02-24] MEDS: CLONAZEPAM 1MG TABLET PO PRN ×2 (13:45→21:56)
[2021-02-24 16:00] VITALS: BP 71/31
[2021-02-24] MEDS: MONTELUKAST SODIUM 10MG TABLET PO SCH (17:39)
[2021-02-24 20:00] VITALS: BP 84/50
[2021-02-24] MEDS: FAMOTIDINE 20MG TABLET PO SCH (21:55)
[2021-02-24] MEDS: LEVETIRACETAM 500MG TABLET PO SCH (21:55)
[2021-02-25] VITALS: BP 92/50
[2021-02-25 04:00] VITALS: BP 95/65
[2021-02-25] MEDS: CLONAZEPAM 1MG TABLET PO PRN ×3 (06:21→23:14)
[2021-02-25] MEDS: CHOLECALCIFEROL (D3) 1000 UNIT TABLET PO SCH (06:22)
[2021-02-25] MEDS: LEVOTHYROXINE SODIUM 88MCG TABLET PO SCH (06:22)
[2021-02-25 08:00] VITALS: BP 95/67
[2021-02-25 12:00] VITALS: BP 111/82
[2021-02-25] MEDS: DICYCLOMINE HCL 10MG CAPSULE PO SCH ×3 (12:41→18:33)
[2021-02-25] MEDS: DOCUSATE SODIUM 100MG CAPSULE PO SCH ×2 (12:41→16:50)
[2021-02-25] MEDS: FOLIC ACID 1MG TABLET PO SCH (12:42)
[2021-02-25] MEDS: LEVETIRACETAM 500MG TABLET PO SCH ×2 (12:42→21:46)
[2021-02-25] MEDS: TOPIRAMATE 100MG TABLET PO SCH ×2 (12:43→21:46)
[2021-02-25] MEDS: OXCARBAZEPINE 300MG TABLET PO SCH ×2 (12:43→16:51)
[2021-02-25] MEDS: CETIRIZINE 10MG TABLET PO SCH (12:44)
[2021-02-25] MEDS: MULTIVITAMINS,THER W-MINERALS TABLET PO SCH (15:39)
[2021-02-25 16:00] VITALS: BP 90/52
[2021-02-25] MEDS: MONTELUKAST SODIUM 10MG TABLET PO SCH (16:51)
[2021-02-25 20:00] VITALS: BP 97/57
[2021-02-25] MEDS: FAMOTIDINE 20MG TABLET PO SCH (21:46)
[2021-02-26] VITALS: BP 98/51
[2021-02-26 04:00] VITALS: BP 88/49
[2021-02-26] MEDS: CHOLECALCIFEROL (D3) 1000 UNIT TABLET PO SCH (06:29)
[2021-02-26] MEDS: LEVOTHYROXINE SODIUM 88MCG TABLET PO SCH (06:29)
[2021-02-26 08:00] VITALS: BP 103/57
[2021-02-26] MEDS: DOCUSATE SODIUM 100MG CAPSULE PO SCH (09:02)
[2021-02-26] MEDS: MULTIVITAMINS,THER W-MINERALS TABLET PO SCH (09:06)
[2021-02-26] MEDS: TOPIRAMATE 100MG TABLET PO SCH (09:06)
[2021-02-26] MEDS: CETIRIZINE 10MG TABLET PO SCH (09:06)
[2021-02-26] MEDS: LEVETIRACETAM 500MG TABLET PO SCH (09:06)
[2021-02-26] MEDS: OXCARBAZEPINE 300MG TABLET PO SCH (09:06)
[2021-02-26] MEDS: DICYCLOMINE HCL 10MG CAPSULE PO SCH ×2 (09:07→13:39)
[2021-02-26] MEDS: FOLIC ACID 1MG TABLET PO SCH (09:07)
[2021-02-26 12:00] VITALS: BP 101/70
[2021-02-26 12:37] VITALS: BP 101/70
[2021-02-26] MEDS: CLONAZEPAM 1MG TABLET PO PRN (13:45)
[2021-02-26 16:00] VITALS: BP 103/62
[2021-02-28 04:10] LABS: NEISSERIA GONORRHOEAE NAA Negative (Negative)
== END 2021-02-26 17:04 | disposition home or self-care (01) | DRG 48 ==
LOC: ER 11:08 → MICUSO 12:57 → ENRESERV 02-23 13:46 → 6EST 02-23 14:08
PROVIDERS: ADMIT Internal Medicine; ATTEND Internal Medicine
DX: G90.8 Other disorders of autonomic nervous system (principal); E87.1 Hypo-osmolality and hyponatremia; D72.819 Decreased white blood cell count, unspecified; E03.9 Hypothyroidism, unspecified; I10 Essential (primary) hypertension; K21.9 Gastro-esophageal reflux disease without esophagitis; K58.9 Irritable bowel syndrome, unspecified; J45.909 Unspecified asthma, uncomplicated; R74.01 Elevation of levels of liver transaminase levels; Z20.822 Contact with and (suspected) exposure to COVID-19; R62.7 Adult failure to thrive; G40.909 Epilepsy, unspecified, not intractable, without status epilepticus; Z59.0 Homelessness; Z90.49 Acquired absence of other specified parts of digestive tract; Z88.8 Allergy status to other drugs, medicaments and biological substances; Z91.040 Latex allergy status; Z79.899 Other long term (current) drug therapy; Z68.21 Body mass index [BMI] 21.0-21.9, adult
CPT/HCPCS: 36415; 71045; 80053; 80305; 80307; 80320; 80329; 81003; 83605; 83880; 84484; 84703; 85025; 85379; 87426; 87491; 87591; 93005; 97162; 99285; J1953; J2405; J3490; J7030; J7040; A4315; G0480

== ENCOUNTER 2021-02-27 15:21 | Emergency (ER) | payer MEDICAID ==
[~2021-02-27] VITALS: Ht 162.6 cm; Wt 59.0 kg
[~2021-02-27 15:21] MED LIST changes: -ACET-2708 MT; -BIOT25008 PO
[2021-02-27 15:32] VITALS: BP 121/64
== END 2021-02-27 18:59 | disposition left against medical advice (07) ==
LOC: ER 15:21
DX: Z53.21 Procedure and treatment not carried out due to patient leaving prior to being seen by health care provider (principal); K21.9 Gastro-esophageal reflux disease without esophagitis; D64.9 Anemia, unspecified; E03.9 Hypothyroidism, unspecified; F41.9 Anxiety disorder, unspecified; R56.9 Unspecified convulsions; Z90.49 Acquired absence of other specified parts of digestive tract; Z98.51 Tubal ligation status; Z98.890 Other specified postprocedural states

== ENCOUNTER 2021-03-19 16:16 | Emergency (ER) | payer MEDICAID ==
[~2021-03-19] VITALS: Ht 162.6 cm; Wt 60.0 kg
[2021-03-19 16:53] VITALS: BP 106/65
[2021-03-19] MEDS ORDERED: LEVE500T19 PO (16:59)
[2021-03-19] MEDS ORDERED: CLON2TAB11 PO (16:59)
== END 2021-03-19 20:50 | disposition left against medical advice (07) ==
LOC: ER 16:16
DX: R68.89 Other general symptoms and signs (principal); Z53.21 Procedure and treatment not carried out due to patient leaving prior to being seen by health care provider

== ENCOUNTER 2021-05-26 01:24 | Emergency (ER) | payer MEDICAID ==
[~2021-05-26] VITALS: Ht 162.6 cm; Wt 59.0 kg
[~2021-05-26 01:24] MED LIST changes: +CLON2TAB11 PO; +LEVE500T19 PO
[2021-05-26] MEDS ORDERED: HYDROCODONE/ACETAMINOPHEN 5/325MG TABLET PO STA ×2 (02:40→02:45)
[2021-05-26] MEDS ORDERED: HYDROCODONE/ACETAMINOPHEN 5/325MG TABLET PO ONE (02:45)
[2021-05-26 03:30] LABS: BASOPHILS % 0.2 % (0.0-2.0); EOSINOPHILS % 1.6 % (0.0-5.0); HEMATOCRIT. 39.3 % (36.0-48.0); HEMOGLOBIN. 13.5 g/dL (12.0-16.0); LYMPHOCYTES % 27.1 % (20.0-50.0); MEAN CORPUSCULAR HEMOGLOBIN 33.3 pg (28.0-32.0); MEAN CORPUSCULAR VOLUME 97.4 fL (81.0-99.0); MEAN PLATELET VOLUME 8.1 fl (7.4-10.4); MONOCYTES % 9.1 % (2.0-8.0); PLATELET 153 x1000/uL (130-400); RED BLOOD CELL COUNT 4.04 mill/uL (4.2-5.4)
[2021-05-26 03:40] LABS: D-DIMER 0.43 mg/L FEU (<0.50); INR 1.1; PROTHROMBIN TIME 11.5 sec (9.6-11.0)
[2021-05-26 03:51] LABS: CHLORIDE 111 mEq/L (98-107)
[2021-05-26 04:06] LABS: CLARITY URINE TURBID (CLEAR); COLOR URINE YELLOW (YELLOW); KETONES URINE NEGATIVE (NEGATIVE); LEUKOCYTE ESTERASE URINE NEGATIVE (NEGATIVE); NITRITE URINE NEGATIVE (NEGATIVE); OCCULT BLOOD URINE NEGATIVE (NEGATIVE); PH URINE 7.5 (4.5-8.0); PROTEIN URINE NEGATIVE (NEGATIVE); SPECIFIC GRAVITY URINE 1.016 (1.005-1.030)
[2021-05-26] MEDS ORDERED: NAPR375T5 MT (05:11)
[2021-05-26 06:10] VITALS: BP 94/56
== END 2021-05-26 06:46 | disposition home or self-care (01) ==
LOC: ER 01:24
DX: M54.89 Other dorsalgia (principal); R07.89 Other chest pain; G40.909 Epilepsy, unspecified, not intractable, without status epilepticus; E03.9 Hypothyroidism, unspecified; K58.9 Irritable bowel syndrome, unspecified; F41.9 Anxiety disorder, unspecified; K21.9 Gastro-esophageal reflux disease without esophagitis; Z87.81 Personal history of (healed) traumatic fracture; Z87.828 Personal history of other (healed) physical injury and trauma; Z91.040 Latex allergy status; Z91.014 Allergy to mammalian meats; Z91.09 Other allergy status, other than to drugs and biological substances; Z90.49 Acquired absence of other specified parts of digestive tract; Z98.51 Tubal ligation status
CPT/HCPCS: 36415; 71045; 80053; 81003; 84484; 85025; 85379; 93005; 99285

== ENCOUNTER 2021-06-10 09:55 | Emergency (ER) | payer MEDICAID ==
[~2021-06-10] VITALS: Ht 162.6 cm; Wt 59.0 kg
[~2021-06-10 09:55] MED LIST changes: +NAPR375T5 MT
[2021-06-10 11:39] LABS: CLARITY URINE CLOUDY (CLEAR); COLOR URINE YELLOW (YELLOW); KETONES URINE NEGATIVE (NEGATIVE); LEUKOCYTE ESTERASE URINE TRACE (NEGATIVE); NITRITE URINE NEGATIVE (NEGATIVE); OCCULT BLOOD URINE NEGATIVE (NEGATIVE); PH URINE 7.5 (4.5-8.0); PROTEIN URINE NEGATIVE (NEGATIVE); SPECIFIC GRAVITY URINE 1.019 (1.005-1.030); UROBILINOGEN URINE 0.2 E.U./dL (0.2-1.0)
[2021-06-10 11:45] LABS: BASOPHILS % 0.2 % (0.0-2.0); EOSINOPHILS % 2.3 % (0.0-5.0); HEMATOCRIT. 37.4 % (36.0-48.0); HEMOGLOBIN. 12.5 g/dL (12.0-16.0); LYMPHOCYTES % 45.9 % (20.0-50.0); MEAN CORPUSCULAR HEMOGLOBIN 33.1 pg (28.0-32.0); MEAN CORPUSCULAR VOLUME 99.2 fL (81.0-99.0); MEAN PLATELET VOLUME 7.9 fl (7.4-10.4); MONOCYTES % 8.3 % (2.0-8.0); NEUTROPHILS % 43.3 % (40.0-76.0); PLATELET 157 x1000/uL (130-400); RED BLOOD CELL COUNT 3.77 mill/uL (4.2-5.4); RED CELL DISTRIBUTION WIDTH 13.3 % (11.6-14.6)
[2021-06-10 11:52] LABS: CHLORIDE 113 mEq/L (98-107)
[2021-06-10 14:11] VITALS: BP 108/81
== END 2021-06-10 15:04 | disposition home or self-care (01) ==
LOC: ER 09:55
DX: B34.9 Viral infection, unspecified (principal); Z20.822 Contact with and (suspected) exposure to COVID-19; Z86.39 Personal history of other endocrine, nutritional and metabolic disease; Z86.59 Personal history of other mental and behavioral disorders; Z91.018 Allergy to other foods; Z91.048 Other nonmedicinal substance allergy status; Z91.040 Latex allergy status; Z79.899 Other long term (current) drug therapy; Z98.51 Tubal ligation status; Z98.890 Other specified postprocedural states; Z90.49 Acquired absence of other specified parts of digestive tract
CPT/HCPCS: 36415; 80053; 81003; 81025; 83735; 85025; 87804; 99283; C9803; U0003; U0005

== ENCOUNTER 2021-06-16 21:39 | Emergency (ER) | payer MEDICAID ==
[~2021-06-16] VITALS: Ht 165.1 cm; Wt 60.0 kg
[2021-06-16 21:40] VITALS: BP 105/58
[2021-06-16] MEDS ORDERED: MAGNESIUM/ALUMINUM HYDROXIDE/SIMETHICONE 30ML UDC PO STA (23:40)
[2021-06-16] MEDS ORDERED: ONDANSETRON 4MG ODT PO STA (23:40)
[2021-06-16] MEDS ORDERED: HYDROCODONE/ACETAMINOPHEN 5/325MG TABLET PO STA (23:40)
[2021-06-16 23:59] LABS: BASOPHILS % 0.1 % (0.0-2.0); EOSINOPHILS % 0.3 % (0.0-5.0); HEMATOCRIT. 38.6 % (36.0-48.0); HEMOGLOBIN. 13.1 g/dL (12.0-16.0); LYMPHOCYTES % 17.3 % (20.0-50.0); MEAN CORPUSCULAR HEMOGLOBIN 32.9 pg (28.0-32.0); MEAN CORPUSCULAR VOLUME 96.8 fL (81.0-99.0); MEAN PLATELET VOLUME 7.6 fl (7.4-10.4); MONOCYTES % 8.3 % (2.0-8.0); PLATELET 156 x1000/uL (130-400); RED BLOOD CELL COUNT 3.98 mill/uL (4.2-5.4); RED CELL DISTRIBUTION WIDTH 12.8 % (11.6-14.6)
[2021-06-17 00:03] LABS: CHLORIDE 99 mEq/L (98-107)
[2021-06-17 00:04] LABS: HCG SCREEN NEGATIVE
[2021-06-17] MEDS ORDERED: SODIUM CHLORIDE 0.9% 1,000 ML IV ONE (01:30)
[2021-06-17 01:59] LABS: CLARITY URINE TURBID (CLEAR); COLOR URINE YELLOW (YELLOW); KETONES URINE NEGATIVE (NEGATIVE); LEUKOCYTE ESTERASE URINE NEGATIVE (NEGATIVE); NITRITE URINE NEGATIVE (NEGATIVE); OCCULT BLOOD URINE NEGATIVE (NEGATIVE); PH URINE 7.5 (4.5-8.0); PROTEIN URINE NEGATIVE (NEGATIVE); SPECIFIC GRAVITY URINE 1.014 (1.005-1.030)
== END 2021-06-17 03:53 | disposition left against medical advice (07) ==
LOC: ER 21:39 → EDBEDREQ 06-17 01:29 → ER 06-17 03:53 → CANBEDREQ 06-17 03:54
DX: R10.13 Epigastric pain (principal); D64.9 Anemia, unspecified; K21.9 Gastro-esophageal reflux disease without esophagitis; Z98.890 Other specified postprocedural states
CPT/HCPCS: 36415; 80053; 81003; 84703; 85025; 93005; 99284

== ENCOUNTER 2021-08-01 00:21 | Emergency (ER) | payer MEDICAID ==
[~2021-08-01] VITALS: Ht 162.6 cm; Wt 60.0 kg
[2021-08-01 00:40] VITALS: BP 107/57
[2021-08-01] MEDS ORDERED: DIPH25CA83 MT (00:43)
== END 2021-08-01 00:54 | disposition home or self-care (01) ==
LOC: ER 00:21
DX: R21 Rash and other nonspecific skin eruption (principal); Z91.018 Allergy to other foods; Z91.048 Other nonmedicinal substance allergy status; Z91.040 Latex allergy status; Z79.899 Other long term (current) drug therapy; Z90.49 Acquired absence of other specified parts of digestive tract; Z98.890 Other specified postprocedural states; Z86.59 Personal history of other mental and behavioral disorders; Z86.39 Personal history of other endocrine, nutritional and metabolic disease
CPT/HCPCS: 99282

== ENCOUNTER 2022-01-26 13:43 | Emergency (ER) | payer MEDICAID ==
[~2022-01-26] VITALS: Ht 165.1 cm; Wt 75.0 kg
[~2022-01-26 13:43] MED LIST changes: +DIPH25CA83 MT; +FLUC150T46 MT; -FLUC150T5 MT; +MONT-39 PO; -MONT10TA32 PO
[2022-01-26 14:14] VITALS: BP 112/72
[2022-01-26] MEDS ORDERED: ACETAMINOPHEN 325MG TABLET PO ONE (15:30)
[2022-01-26] MEDS ORDERED: ACET-2708 MT (17:03)
== END 2022-01-26 17:17 | disposition home or self-care (01) ==
LOC: ER 13:43
DX: B34.9 Viral infection, unspecified (principal); K21.9 Gastro-esophageal reflux disease without esophagitis; K58.9 Irritable bowel syndrome, unspecified; G40.909 Epilepsy, unspecified, not intractable, without status epilepticus; E05.90 Thyrotoxicosis, unspecified without thyrotoxic crisis or storm; Z20.822 Contact with and (suspected) exposure to COVID-19; Z90.49 Acquired absence of other specified parts of digestive tract; Z91.048 Other nonmedicinal substance allergy status; Z91.040 Latex allergy status; Z91.018 Allergy to other foods
CPT/HCPCS: 71045; 81025; 87426; 99284

== ENCOUNTER 2022-03-11 23:47 | Emergency (ER) | payer MEDICAID ==
[~2022-03-11] VITALS: Ht 157.5 cm; Wt 55.0 kg
[~2022-03-11 23:47] MED LIST changes: +ACET-2708 MT; -CLON2TAB11 PO; +CLON2TAB21 PO; -DOXY150T9 MT; -FLUC150T46 MT; -FOLI0.4T6 MT; -NEOM28.37 TP; -TOPI200T15 PO
[2022-03-12] MEDS ORDERED: CEPH500C2 MT (01:02)
[2022-03-12] MEDS ORDERED: KEPP500 MT (01:02)
[2022-03-12 01:13] VITALS: BP 101/78
== END 2022-03-12 01:13 | disposition home or self-care (01) ==
LOC: ER 23:47
DX: Z76.0 Encounter for issue of repeat prescription (principal); N30.00 Acute cystitis without hematuria; R56.9 Unspecified convulsions; D64.9 Anemia, unspecified; K21.9 Gastro-esophageal reflux disease without esophagitis; I95.9 Hypotension, unspecified; E05.90 Thyrotoxicosis, unspecified without thyrotoxic crisis or storm; F32.9 Major depressive disorder, single episode, unspecified; Z90.49 Acquired absence of other specified parts of digestive tract; Z91.014 Allergy to mammalian meats; Z91.018 Allergy to other foods; Z91.048 Other nonmedicinal substance allergy status; Z98.890 Other specified postprocedural states
CPT/HCPCS: 81025; 99282

== ENCOUNTER 2022-03-21 17:51 | Emergency (ER) | payer MEDICAID ==
[~2022-03-21] VITALS: Ht 167.6 cm; Wt 75.0 kg
[~2022-03-21 17:51] MED LIST changes: +CEPH500C2 MT; +KEPP500 MT
[2022-03-21] MEDS ORDERED: CEFTRIAXONE SODIUM 500 MG/VIAL IM NR (21:58)
[2022-03-21] MEDS ORDERED: LIDOCAINE HCL 1% 20ML VIAL (Pyxis) INJ INFIL ONE (22:00)
[2022-03-21] MEDS ORDERED: CEFTRIAXONE 250MG/ML (FOR IM ONLY) IM ONE (22:00)
[2022-03-21] MEDS ORDERED: IBUPROFEN 400MG TABLET PO ONE (22:15)
[2022-03-21 23:12] LABS: CLARITY URINE TURBID (CLEAR); COLOR URINE YELLOW (YELLOW); KETONES URINE NEGATIVE (NEGATIVE); LEUKOCYTE ESTERASE URINE 2+ (NEGATIVE); NITRITE URINE NEGATIVE (NEGATIVE); OCCULT BLOOD URINE NEGATIVE (NEGATIVE); PH URINE 6.5 (4.5-8.0); PROTEIN URINE NEGATIVE (NEGATIVE); SPECIFIC GRAVITY URINE 1.018 (1.005-1.030)
[2022-03-22 00:21] LABS: BASOPHILS % 0.2 % (0.0-2.0); EOSINOPHILS % 1.7 % (0.0-5.0); HEMATOCRIT. 32.4 % (36.0-48.0); HEMOGLOBIN. 11.2 g/dL (12.0-16.0); LYMPHOCYTES % 51.1 % (20.0-50.0); MEAN CORPUSCULAR HEMOGLOBIN 34.3 pg (28.0-32.0); MEAN CORPUSCULAR VOLUME 99.5 fL (81.0-99.0); MEAN PLATELET VOLUME 7.9 fl (7.4-10.4); MONOCYTES % 10.3 % (2.0-8.0); NEUTROPHILS % 36.7 % (40.0-76.0); PLATELET 130 x1000/uL (130-400); RED BLOOD CELL COUNT 3.26 mill/uL (4.2-5.4)
[2022-03-22 00:30] LABS: CHLORIDE 114 mEq/L (98-107)
[2022-03-22 00:34] LABS: HCG SCREEN NEGATIVE
[2022-03-22] MEDS ORDERED: LIDOCAINE HCL 1% 20ML VIAL (Pyxis) INJ INFIL NR (00:45)
[2022-03-22] MEDS ORDERED: IBUPROFEN 400MG TABLET PO NR (00:45)
[2022-03-22] MEDS ORDERED: EMTR1TAB11 MT (00:59)
[2022-03-22] MEDS ORDERED: IBUP-2028 MT (00:59)
[2022-03-22] MEDS ORDERED: CEPH500C2 MT (00:59)
[2022-03-22] MEDS ORDERED: RALT400T MT (00:59)
[2022-03-22] MEDS ORDERED: LEVO1.5T37 MT (00:59)
[2022-03-22] MEDS ORDERED: DOXY100C5 MT (00:59)
[2022-03-22 01:00] VITALS: BP 100/56
== END 2022-03-22 02:49 | disposition home or self-care (01) ==
LOC: ER 18:00
DX: T76.21XA Adult sexual abuse, suspected, initial encounter (principal); N39.0 Urinary tract infection, site not specified; Z91.014 Allergy to mammalian meats; Z91.048 Other nonmedicinal substance allergy status; Z91.040 Latex allergy status; Z79.899 Other long term (current) drug therapy; Z90.49 Acquired absence of other specified parts of digestive tract; Z98.890 Other specified postprocedural states; Z86.39 Personal history of other endocrine, nutritional and metabolic disease; Z86.59 Personal history of other mental and behavioral disorders
CPT/HCPCS: 36415; 80053; 81003; 81025; 84703; 85025; 99283; J0696

== ENCOUNTER 2022-03-23 10:13 | Emergency (ER) | payer MEDICAID ==
[~2022-03-23] VITALS: Ht 167.6 cm; Wt 63.0 kg
[~2022-03-23 10:13] MED LIST changes: +DOXY100C5 MT; +EMTR1TAB11 MT; +IBUP-2028 MT; +LEVO1.5T37 MT; +RALT400T MT
[2022-03-23 10:39] VITALS: BP 95/67
== END 2022-03-23 12:10 | disposition home or self-care (01) ==
LOC: ER 10:49
DX: T74.21XA Adult sexual abuse, confirmed, initial encounter (principal); R10.2 Pelvic and perineal pain; N30.20 Other chronic cystitis without hematuria; G40.909 Epilepsy, unspecified, not intractable, without status epilepticus; K21.9 Gastro-esophageal reflux disease without esophagitis; F32.A Depression, unspecified; K58.9 Irritable bowel syndrome, unspecified; E05.90 Thyrotoxicosis, unspecified without thyrotoxic crisis or storm; Z59.00 Homelessness unspecified; Z90.49 Acquired absence of other specified parts of digestive tract; Z98.890 Other specified postprocedural states; Z91.014 Allergy to mammalian meats; Z91.048 Other nonmedicinal substance allergy status; Z91.040 Latex allergy status
CPT/HCPCS: 99281

== ENCOUNTER 2022-04-06 12:09 | Emergency (ER) | payer MEDICAID ==
[~2022-04-06] VITALS: Ht 157.5 cm; Wt 62.0 kg
[2022-04-06] MEDS ORDERED: ACETAMINOPHEN 325MG TABLET PO STA (12:52)
[2022-04-06] MEDS ORDERED: IBUPROFEN 600MG TABLET PO STA (12:52)
[2022-04-06 13:24] LABS: CLARITY URINE TURBID (CLEAR); COLOR URINE YELLOW (YELLOW); KETONES URINE NEGATIVE (NEGATIVE); LEUKOCYTE ESTERASE URINE NEGATIVE (NEGATIVE); NITRITE URINE NEGATIVE (NEGATIVE); OCCULT BLOOD URINE NEGATIVE (NEGATIVE); PH URINE 7.5 (4.5-8.0); PROTEIN URINE NEGATIVE (NEGATIVE); SPECIFIC GRAVITY URINE 1.014 (1.005-1.030); UROBILINOGEN URINE 0.2 E.U./dL (0.2-1.0)
[2022-04-06 14:12] LABS: BASOPHILS % 0.2 % (0.0-2.0); EOSINOPHILS % 1.3 % (0.0-5.0); HEMATOCRIT. 39.6 % (36.0-48.0); HEMOGLOBIN. 13.5 g/dL (12.0-16.0); LYMPHOCYTES % 41.9 % (20.0-50.0); MEAN CORPUSCULAR VOLUME 100.2 fL (81.0-99.0); MEAN PLATELET VOLUME 7.9 fl (7.4-10.4); MONOCYTES % 8.7 % (2.0-8.0); NEUTROPHILS % 47.9 % (40.0-76.0); PLATELET 160 x1000/uL (130-400); RED BLOOD CELL COUNT 3.95 mill/uL (4.2-5.4); RED CELL DISTRIBUTION WIDTH 12.7 % (11.6-14.6)
[2022-04-06 14:20] LABS: CHLORIDE 106 mEq/L (98-107)
[2022-04-06 14:23] LABS: INR 1.2; PROTHROMBIN TIME 12.3 sec (9.6-11.0)
[2022-04-06 14:26] LABS: HCG SCREEN NEGATIVE
[2022-04-06] MEDS ORDERED: NAPR-1176 MT (15:56)
[2022-04-06 16:31] VITALS: BP 104/63
== END 2022-04-06 16:15 | disposition home or self-care (01) ==
LOC: ER 12:09
DX: R10.11 Right upper quadrant pain (principal); K58.9 Irritable bowel syndrome, unspecified; K21.9 Gastro-esophageal reflux disease without esophagitis; F32.A Depression, unspecified; G40.909 Epilepsy, unspecified, not intractable, without status epilepticus; Z90.49 Acquired absence of other specified parts of digestive tract; Z88.8 Allergy status to other drugs, medicaments and biological substances; Z91.048 Other nonmedicinal substance allergy status; Z91.018 Allergy to other foods; Z91.040 Latex allergy status
CPT/HCPCS: 36415; 76700; 80053; 81003; 81025; 84703; 85025; 99284

== ENCOUNTER 2022-05-04 18:04 | Emergency (ER) | payer MEDICAID ==
[~2022-05-04] VITALS: Ht 162.6 cm; Wt 54.0 kg
[~2022-05-04 18:04] MED LIST changes: +NAPR-1176 MT
[2022-05-04] MEDS ORDERED: LEVETIRACETAM 1000MG PREMIX 100 ML IV ONE (18:30)
[2022-05-04 18:50] LABS: BASOPHILS % 0.2 % (0.0-2.0); EOSINOPHILS % 1.8 % (0.0-5.0); HEMATOCRIT. 39.3 % (36.0-48.0); HEMOGLOBIN. 13.4 g/dL (12.0-16.0); LYMPHOCYTES % 30.6 % (20.0-50.0); MEAN CORPUSCULAR HEMOGLOBIN 34.6 pg (28.0-32.0); MEAN PLATELET VOLUME 8.2 fl (7.4-10.4); MONOCYTES % 7.9 % (2.0-8.0); NEUTROPHILS % 59.5 % (40.0-76.0); PLATELET 160 x1000/uL (130-400); RED BLOOD CELL COUNT 3.89 mill/uL (4.2-5.4); RED CELL DISTRIBUTION WIDTH 13.6 % (11.6-14.6)
[2022-05-04 18:55] LABS: CHLORIDE 107 mEq/L (98-107)
[2022-05-04 19:04] LABS: ETHANOL BLOOD < 10 mg/dL; HCG SCREEN NEGATIVE
[2022-05-04 20:35] LABS: CLARITY URINE TURBID (CLEAR); COLOR URINE YELLOW (YELLOW); KETONES URINE NEGATIVE (NEGATIVE); LEUKOCYTE ESTERASE URINE NEGATIVE (NEGATIVE); NITRITE URINE NEGATIVE (NEGATIVE); OCCULT BLOOD URINE NEGATIVE (NEGATIVE); PROTEIN URINE NEGATIVE (NEGATIVE); SPECIFIC GRAVITY URINE 1.017 (1.005-1.030)
[2022-05-04 21:00] VITALS: BP 97/62
[2022-05-04 21:10] LABS: *AMPHETAMINES SCREEN URINE NEGATIVE (NEGATIVE); *BARBITURATES SCREEN URINE NEGATIVE (NEGATIVE); *BENZODIAZEPINES SCREEN URINE NEGATIVE (NEGATIVE); *COCAINE SCREEN URINE NEGATIVE (NEGATIVE); CANNABINOID URINE SCREEN NEGATIVE (NEGATIVE); METHADONE URINE SCREEN NEGATIVE (NEGATIVE); OPIATES URINE SCREEN NEGATIVE (NEGATIVE); PHENCYCLIDINE URINE SCREEN NEGATIVE (NEGATIVE)
== END 2022-05-04 22:00 | disposition home or self-care (01) ==
LOC: ER 18:04
DX: G40.909 Epilepsy, unspecified, not intractable, without status epilepticus (principal); K21.9 Gastro-esophageal reflux disease without esophagitis; F32.A Depression, unspecified; K58.9 Irritable bowel syndrome, unspecified; E03.9 Hypothyroidism, unspecified; Z59.00 Homelessness unspecified; Z88.8 Allergy status to other drugs, medicaments and biological substances; Z90.49 Acquired absence of other specified parts of digestive tract; Z87.891 Personal history of nicotine dependence; Z91.040 Latex allergy status; Z91.014 Allergy to mammalian meats
CPT/HCPCS: 36415; 80053; 80305; 80320; 81003; 84703; 85025; 99283; G0480

== ENCOUNTER 2022-06-27 17:43 | Inpatient (IN) | payer MEDICAID ==
[~2022-06-27] VITALS: Ht 157.5 cm; Wt 65.3 kg
[2022-06-27] MEDS ORDERED: ACETAMINOPHEN 325MG TABLET PO ONE (21:00)
[2022-06-27 21:19] LABS: CHLORIDE 94 mEq/L (98-107)
[2022-06-27 21:21] LABS: BASOPHILS % 0.2 % (0.0-2.0); EOSINOPHILS % 1.3 % (0.0-5.0); HEMATOCRIT. 35.4 % (36.0-48.0); HEMOGLOBIN. 12.3 g/dL (12.0-16.0); LYMPHOCYTES % 27.5 % (20.0-50.0); MEAN CORPUSCULAR HEMOGLOBIN 33.6 pg (28.0-32.0); MEAN CORPUSCULAR VOLUME 96.9 fL (81.0-99.0); MEAN PLATELET VOLUME 7.2 fl (7.4-10.4); MONOCYTES % 7.5 % (2.0-8.0); NEUTROPHILS % 63.5 % (40.0-76.0); PLATELET 185 x1000/uL (130-400); RED BLOOD CELL COUNT 3.65 mill/uL (4.2-5.4); RED CELL DISTRIBUTION WIDTH 12.2 % (11.6-14.6)
[2022-06-27 21:29] LABS: HCG SCREEN NEGATIVE
[2022-06-27 21:32] LABS: ETHANOL BLOOD < 10 mg/dL
[2022-06-27] MEDS ORDERED: SODIUM CHLORIDE 0.9% 1,000 ML IV ONE (22:45)
[2022-06-27 23:41] LABS: CLARITY URINE CLOUDY (CLEAR); COLOR URINE YELLOW (YELLOW); KETONES URINE NEGATIVE (NEGATIVE); LEUKOCYTE ESTERASE URINE 3+ (NEGATIVE); NITRITE URINE POSITIVE (NEGATIVE); OCCULT BLOOD URINE TRACE (NEGATIVE); PH URINE 6.5 (4.5-8.0); PROTEIN URINE NEGATIVE (NEGATIVE); SPECIFIC GRAVITY URINE 1.014 (1.005-1.030); UROBILINOGEN URINE 0.2 E.U./dL (0.2-1.0)
[2022-06-27] MEDS: ACETAMINOPHEN 325MG TABLET PO NR (23:49)
[2022-06-28 00:08] LABS: *AMPHETAMINES SCREEN URINE NEGATIVE (NEGATIVE); *BARBITURATES SCREEN URINE NEGATIVE (NEGATIVE); *COCAINE SCREEN URINE NEGATIVE (NEGATIVE); CANNABINOID URINE SCREEN NEGATIVE (NEGATIVE); METHADONE URINE SCREEN NEGATIVE (NEGATIVE); OPIATES URINE SCREEN NEGATIVE (NEGATIVE); PHENCYCLIDINE URINE SCREEN NEGATIVE (NEGATIVE)
[2022-06-28 00:22] LABS: *BENZODIAZEPINES SCREEN URINE PRESUMTIVE POSITIVE (NEGATIVE)
[2022-06-28] MEDS: ACETAMINOPHEN 325MG TABLET PO NR ×3 (00:46→03:08)
[2022-06-28] MEDS ORDERED: CLON2TAB21 PO (12:39)
[2022-06-28] MEDS ORDERED: LEVO88TA7 PO (12:39)
[2022-06-28] MEDS ORDERED: CETI10TA11 PO (12:39)
[2022-06-28] MEDS ORDERED: OXCA600T20 PO (12:39)
[2022-06-28] MEDS ORDERED: DICY10SO PO (12:39)
[2022-06-28] MEDS ORDERED: MONT-39 PO (12:39)
[2022-06-28] MEDS ORDERED: FOLI-43 PO (12:39)
[2022-06-28] MEDS ORDERED: TOPI200T15 PO (12:39)
[2022-06-28] MEDS ORDERED: MULT-1146 PO (12:44)
[2022-06-28] MEDS ORDERED: CHOL125C6 PO (12:44)
[2022-06-28] MEDS ORDERED: OMEP40CA20 PO (12:44)
[2022-06-28] MEDS ORDERED: BIOT5000 PO (12:44)
[2022-06-28] MEDS ORDERED: CHOL2400 MC (12:44)
[2022-06-28] MEDS ORDERED: FLUT9.9S BOTHNSTRLS (12:44)
[2022-06-28] MEDS ORDERED: HYDROCODONE/ACETAMINOPHEN 5/325MG TABLET PO PRN (13:00)
[2022-06-28] MEDS ORDERED: ACETAMINOPHEN 650MG/20.3ML UDC PO PRN (13:00)
[2022-06-28] MEDS ORDERED: NALOXONE HCL 0.4MG/ML VIAL IV PRN (13:30)
[2022-06-28 14:00] VITALS: BP 98/52
[2022-06-28 14:36] VITALS: BP 98/52
[2022-06-28] MEDS: FOLIC ACID 1MG TABLET PO SCH (15:20)
[2022-06-28] MEDS: FAMOTIDINE 20MG TABLET PO SCH (15:21)
[2022-06-28] MEDS: SODIUM CHLORIDE 0.9% 1,000 ML IV SCH (15:22)
[2022-06-28 16:00] VITALS: BP 101/59
[2022-06-28] MEDS: LEVOTHYROXINE SODIUM 88MCG TABLET PO SCH (17:52)
[2022-06-28] MEDS: CLONAZEPAM 1MG TABLET PO SCH ×2 (17:52→21:58)
[2022-06-28] MEDS: DICYCLOMINE HCL 10MG CAPSULE PO SCH (17:52)
[2022-06-28 20:00] VITALS: BP 90/50
[2022-06-28] MEDS: OXCARBAZEPINE 300MG TABLET PO SCH (20:40)
[2022-06-28] MEDS: TOPIRAMATE 100MG TABLET PO SCH (20:40)
[2022-06-28] MEDS: MONTELUKAST SODIUM 10MG TABLET PO SCH (20:40)
[2022-06-28] MEDS ORDERED: CEFTRIAXONE 1 G PREMIX 50 ML IV SCH (22:15)
[2022-06-28] MEDS: CEFTRIAXONE 1,000 MG in DEXTROSE 5% WATER 50 ML IV SCH (23:28)
[2022-06-29] VITALS: BP 97/60
[2022-06-29 04:00] VITALS: BP 96/51
[2022-06-29] MEDS: SODIUM CHLORIDE 0.9% 1,000 ML IV SCH ×2 (04:51→16:54)
[2022-06-29] MEDS: LEVOTHYROXINE SODIUM 88MCG TABLET PO SCH (06:29)
[2022-06-29] MEDS: CLONAZEPAM 1MG TABLET PO SCH ×3 (06:29→21:56)
[2022-06-29 06:42] LABS: BASOPHILS % 0.2 % (0.0-2.0); HEMATOCRIT. 35.2 % (36.0-48.0); HEMOGLOBIN. 12.4 g/dL (12.0-16.0); LYMPHOCYTES % 20.4 % (20.0-50.0); MEAN CORPUSCULAR HEMOGLOBIN 34.1 pg (28.0-32.0); MEAN CORPUSCULAR VOLUME 96.5 fL (81.0-99.0); MEAN PLATELET VOLUME 7.8 fl (7.4-10.4); MONOCYTES % 10.1 % (2.0-8.0); NEUTROPHILS % 68.3 % (40.0-76.0); PLATELET 164 x1000/uL (130-400); RED BLOOD CELL COUNT 3.65 mill/uL (4.2-5.4); RED CELL DISTRIBUTION WIDTH 12.3 % (11.6-14.6)
[2022-06-29 06:54] LABS: CHLORIDE 103 mEq/L (98-107)
[2022-06-29] MEDS: TOPIRAMATE 100MG TABLET PO SCH ×2 (08:15→21:55)
[2022-06-29] MEDS: DICYCLOMINE HCL 10MG CAPSULE PO SCH ×3 (08:16→16:54)
[2022-06-29] MEDS: FOLIC ACID 1MG TABLET PO SCH (08:16)
[2022-06-29] MEDS: FAMOTIDINE 20MG TABLET PO SCH (08:17)
[2022-06-29] MEDS: OXCARBAZEPINE 300MG TABLET PO SCH ×2 (08:18→22:18)
[2022-06-29 14:00] VITALS: BP 98/49
[2022-06-29 16:00] VITALS: BP 94/52
[2022-06-29] MEDS: MONTELUKAST SODIUM 10MG TABLET PO SCH (21:55)
[2022-06-29] MEDS: CEFTRIAXONE 1,000 MG in DEXTROSE 5% WATER 50 ML IV SCH (22:18)
== END 2022-06-30 02:45 | disposition left against medical advice (07) | DRG 426 ==
LOC: ER 18:12 → 3WST 23:45 → EDBEDREQ 23:48 → EDBEDREQTM 23:48 → 3WST 06-28 11:42
PROVIDERS: ADMIT Internal Medicine; ATTEND Internal Medicine
DX: E22.2 Syndrome of inappropriate secretion of antidiuretic hormone (principal); G90.A Postural orthostatic tachycardia syndrome [POTS]; G90.8 Other disorders of autonomic nervous system; G40.909 Epilepsy, unspecified, not intractable, without status epilepticus; D64.9 Anemia, unspecified; T50.995A Adverse effect of other drugs, medicaments and biological substances, initial encounter; E03.9 Hypothyroidism, unspecified; Z53.29 Procedure and treatment not carried out because of patient's decision for other reasons; K21.9 Gastro-esophageal reflux disease without esophagitis; Z88.8 Allergy status to other drugs, medicaments and biological substances; Z59.00 Homelessness unspecified; Z90.49 Acquired absence of other specified parts of digestive tract; Z82.49 Family history of ischemic heart disease and other diseases of the circulatory system; G43.909 Migraine, unspecified, not intractable, without status migrainosus; Y92.89 Other specified places as the place of occurrence of the external cause
CPT/HCPCS: 36415; 80048; 80053; 80305; 80320; 81003; 82533; 83930; 83935; 84295; 84443; 84703; 85025; 87077; 87186; 99291; J0696; J7030; J7060; G0480